=== PATIENT | female | born 1955 | race Caucasian/White ===

== ENCOUNTER → 2017-01-12 | Outpatient (CLI) | payer OTHER ==
[~2017-01-12] MED LIST: ALCO1PAD; APIX5TAB PO; ASPI81TA81 PO; ATEN100T PO; ATOR40TA16 PO; BAYEMIS; BLOOD GLUCOSE M1 KIT; BLOOD GLUCOSE T1 TES; CARD240C6 PO; CITA20TA4 PO; CLON.1 PO; FLUC150T PO; GABA400C5 PO; GLIP10TA6 PO; GLUCTES27; INSU-150; INSU-173; INSU1MIS; LANC30MI; LEVEMIR SQ; LISI-515 PO; LISI30TA4 PO; METF500T PO; NOVOLOGSS SQ; NOVORP2 SQ; OMEP20TA PO; PERI8.6T PO; PLAV75TA29 PO; SITA100T PO; SPIR25TA PO
[2017-01-12 09:29] LABS: AUTOMATED NEUTROPHIL # 2.1 TH/MM3 (1.8-7.7); BASOPHIL % 1.1 % (0.0-2.0); EOSINOPHIL # 0.1 TH/MM3 (0-0.4); EOSINOPHIL % 3.5 % (0.0-4.0); HEMATOCRIT 39.5 % (35.0-46.0); HEMO FLAGS DIFF FINAL; LYMPH % 31.9 % (9.0-44.0); LYMPHOCYTE # 1.2 TH/MM3 (1.0-4.8); MEAN CELL VOLUME 82.1 FL (80.0-100.0); MEAN CORPUSCULAR HEMOGLOBIN 28.5 PG (27.0-34.0); MEAN CORPUSCULAR HGB CONC 34.7 % (32.0-36.0); NEUT % 55.5 % (16.0-70.0); PLATELET COUNT 137 TH/MM3 (150-450); RED BLOOD COUNT 4.81 MIL/MM3 (4.00-5.30); RED CELL DISTRIBUTION WIDTH 14.1 % (11.6-17.2); WHITE BLOOD COUNT 3.8 TH/MM3 (4.0-11.0)
[2017-01-12 10:08] LABS: ALKALINE PHOSPHATASE 112 U/L (45-117); ALT (GPT) 25 U/L (10-53); ANION GAP 9 MEQ/L (5-15); AST (GOT) 19 U/L (15-37); BICARBONATE 30.1 MEQ/L (21.0-32.0); BLOOD UREA NITROGEN 9 MG/DL (7-18); CHLORIDE 98 MEQ/L (98-107); GLOMERULAR FILTRATION RATE 94 ML/MIN (>89); GLUCOSE,FASTING 313 MG/DL (74-99); HDL CHOLESTEROL 44.8 MG/DL (40.0-60.0); LDL CHOLESTEROL 139 MG/DL (0-99); POTASSIUM 3.5 MEQ/L (3.5-5.1); SODIUM (NA) 137 MEQ/L (136-145); TOTAL BILIRUBIN ADULT 0.7 MG/DL (0.2-1.0)
[2017-01-12 16:07] LABS: HEMOGLOBIN A1a 1.5 %; HEMOGLOBIN Ao 72.9 %; HEMOGLOBIN F 3.7 %; HEMOGLOBIN LA1C 3.3 %; HEMOGLOBIN P3 5.2 %
== END ==
LOC: CLAB 09:03
PROVIDERS: ATTEND Nurse Practitioner Family
DX: I10 Essential (primary) hypertension (principal); E11.9 Type 2 diabetes mellitus without complications; E78.5 Hyperlipidemia, unspecified
CPT/HCPCS: 36415; 80053; 80061; 83036; 84443; 85025

== ENCOUNTER → 2017-03-23 | Outpatient (CLI) | payer OTHER ==
[~2017-03-23] MED LIST changes: -CLON.1 PO; -FLUC150T PO; -INSU-173; -NOVORP2 SQ; -SITA100T PO
[2017-03-23 10:51] LABS: ANION GAP 8 MEQ/L (5-15); BICARBONATE 30.4 MEQ/L (21.0-32.0); BLOOD UREA NITROGEN 20 MG/DL (7-18); CHLORIDE 101 MEQ/L (98-107); GLOMERULAR FILTRATION RATE 86 ML/MIN (>89); GLUCOSE,FASTING 239 MG/DL (74-99); POTASSIUM 3.3 MEQ/L (3.5-5.1); SODIUM (NA) 139 MEQ/L (136-145)
== END ==
LOC: CLAB 09:53
PROVIDERS: ATTEND Nurse Practitioner Family
DX: R41.0 Disorientation, unspecified (principal)
CPT/HCPCS: 36415; 80069; 82607; 82746

== ENCOUNTER → 2017-03-27 | Outpatient (CLI) | payer OTHER ==
--- NOTE | 2017-03-27 09:05 | RADRPT ---
EXAM DATE/TIME: 03/27/2017 07:49 [facility] COMPARISON: No previous studies available for comparison. INDICATIONS : Transient ischemic attack. MEDICAL HISTORY : Stroke. Headaches. Dizziness. Memory loss. SURGICAL HISTORY : Tonsillectomy. Appendectomy. Cholecystectomy. Hysterectomy. ENCOUNTER: Initial ACUITY: 2 weeks PAIN SCORE: 0/10 LOCATION: Bilateral neck PEAK SYSTOLIC VELOCITIES (cm/sec): ICA/CCA RATIO: Right: 1.5 Left: 1.1 ICA: Right: 98.3 Left: 84.2 CCA: Right: 67.7 Left: 78.8 ECA: Right: 82.4 Left: 65.9 VERTEBRAL: Right: 74.9 antegrade Left: 49.6 antegrade Elevated flow velocities and ICA/CCA ratios have been found to correlate with increased degrees of vessel stenosis, calculated as percentage of diameter relative to a normal segment of distal ICA/CCA FINDINGS: RIGHT CAROTID: No significant stenosis is visualized. The waveforms are within normal limits. LEFT CAROTID: No significant stenosis is visualized. The waveforms are within normal limits. VERTEBRAL ARTERIES: Antegrade flow is seen in both vertebral arteries. MISCELLANEOUS: None. CONCLUSION: No hemodynamically significant stenosis in either carotid artery. Logan Yin MD on March 27, 2017 at 9:02 Board Certified Radiologist. This report was verified electronically.
--- NOTE | 2017-03-27 09:24 | RADRPT ---
EXAM DATE/TIME: 03/27/2017 07:48 [facility] COMPARISON: No previous studies available for comparison. INDICATIONS : TIA. MEDICAL HISTORY : Hypertension. Diabetes mellitus type 2. SURGICAL HISTORY : Cholecystectomy. Tonsillectomy. ENCOUNTER: Initial ACUITY: 4-6 days PAIN SCORE: 0/10 LOCATION: Head Please note a normal MRA of the brain does not entirely exclude the possibility of a small aneurysm, nor the possibility of distal intracranial vessel disease. TECHNIQUE: 3D time of flight MRA was performed. Source images, multiplanar STS MIP, and 3D volume MIP reconstru ctions were reviewed. FINDINGS: There is excellent visualization of the major intracranial arteries out to the second-order branch ve ssels. There are 2 focal areas of at least moderate narrowing at the proximal right posterior cerebr al artery. It appears the lumen is narrowed by at least 50% in these regions. These areas measure bet ween 3 and 4 mm in length. The more distal flow appears normal. There is a similar focal stenosis at the distal medial right A1 segment of anterior cervical artery. No other areas of stenosis are seen. There is no evidence for aneurysm, vessel truncation, and no evidence for vascular malformation. CONCLUSION: 2 adjacent focal areas of at least moderate stenosis in the proximal right posterior cerebral artery and a focal stenosis at the distal right A1 segment of the anterior cerebral artery. These areas are nonspecific and could be from atherosclerotic disease or underlying vasculitis. The more distal flow appears symmetric and normal. Allen Chung MD on March 27, 2017 at 9:01 Board Certified Radiologist. This report was verified electronically.
== END ==
LOC: HRAD 07:17
PROVIDERS: ATTEND Family Medicine
DX: R41.0 Disorientation, unspecified (principal); G45.9 Transient cerebral ischemic attack, unspecified
CPT/HCPCS: 70544; 93880

== ENCOUNTER → 2017-03-29 | Outpatient (CLI) | payer OTHER ==
--- NOTE | 2017-03-29 13:37 | RADRPT ---
EXAM DATE/TIME: 03/29/2017 13:21 [facility] COMPARISON: No previous studies available for comparison. INDICATIONS : Intermittent confusion and slurred speech. RADIATION DOSE: 48.10 CTDIvol (mGy) MEDICAL HISTORY : Hypertension. Diabetes SURGICAL HISTORY : None. ENCOUNTER: Initial ACUITY: 1 day PAIN SCALE: 0/10 LOCATION: cranial TECHNIQUE: Multiple contiguous axial images were obtained of the head. Using automated exposure control and adj ustment of the mA and/or kV according to patient size, radiation dose was kept as low as reasonably a chievable to obtain optimal diagnostic quality images. FINDINGS: CEREBRUM: The ventricles are normal for age. No evidence of midline shift, mass lesion, hemorrhage or acute in farction. No extra-axial fluid collections are seen. POSTERIOR FOSSA: The cerebellum and brainstem are intact. The 4th ventricle is midline. The cerebellopontine angle i s unremarkable. EXTRACRANIAL: The visualized portion of the orbits is intact. SKULL: The calvaria is intact. No evidence of skull fracture. CONCLUSION: 1. Negative examination. Margarito Hawk MD on March 29, 2017 at 13:33 Board Certified Radiologist. This report was verified electronically.
== END ==
LOC: HRAD 12:30
PROVIDERS: ATTEND Family Medicine
DX: R41.0 Disorientation, unspecified (principal)
CPT/HCPCS: 70450

== ENCOUNTER 2017-03-31 18:08 | Observation (INO) | payer OTHER ==
[2017-03-31] VITALS (8 sets, daily range): BP systolic 117–155; BP diastolic 72–103; PULSE 68–139; RESP 15–20; TEMP 98.2; O2SAT 98–99
[~2017-03-31] VITALS: Ht 160 cm; Wt 76.5 kg
[~2017-03-31 18:08] MED LIST changes: -ALCO1PAD; -APIX5TAB PO; -BLOOD GLUCOSE M1 KIT; -BLOOD GLUCOSE T1 TES; -CARD240C6 PO; -INSU1MIS; -LANC30MI; -LISI-515 PO; -NOVOLOGSS SQ
--- NOTE | 2017-03-31 18:42 | PD ---
HPI . headache for 2 weeks, felt lightheaded Chief Complaint: Syncope/Near-Syncope Time Seen by Provider: 18:42 Travel History International Travel<30 days: No Contact w/Intl Traveler<30days: No Traveled to known affect area: No History of Present Illness HPI 61-year-old female with history of hypertension, diabetes, hyperlipidemia and osteoarthritis here with complaints of headache for 2 weeks and almost passing out. Patient was seen in the community clinic on March 22, 2017 for an episode of "being out of sorts." I have reviewed those records and apparently patient went in and it was believed that she may have had a TIA or possible stroke. Patient had a full workup including a head CT, had MRA, carotid ultrasound and head CT. Head CT was normal. Head MRA demonstrates a moderate stenosis and focal stenosis and had some findings that were possibly representing atherosclerotic disease versus vasculitis. She also had a carotid ultrasound that demonstrated no significant stenosis. When asked about the type of headache she tells me "It's all over." She has a very hard time describing the type of pain. She has settled on calling it "dull." She has not ever passed out or had any LOC. Patient is a poor historian and has some level of difficulty relaying her symptoms. PFSH Past Medical History Cardiovascular Problems: Yes (HTN) High Cholesterol: Yes Diabetes: Yes Patient Takes Glucophage: Yes (03/31 0800 - 1000 mg) Hypertension: Yes Past Surgical History Hysterectomy: Yes Social History Alcohol Use: No Tobacco Use: No Substance Use: No Allergies-Medications (Allergen,Severity, Reaction): Coded Allergies: Codeine (Verified Allergy, Severe, Nausea/Vomiting, 03/31/17) Reported Meds & Prescriptions Reported Meds & Active Scripts Active Lisinopril 30 Mg Tab 30 Mg PO DAILY Plavix (Clopidogrel Bisulfate) 75 Mg Tab 75 Mg PO DAILY Metformin (Metformin HCl) 500 Mg Tab 1,000 Mg PO BIDPC With meals Glipizide 10 Mg Tab 10 Mg PO BIDAC Take 30 minutes before a meal Omeprazole 20 Mg Tab 40 Mg PO BID Citalopram (Citalopram Hydrobromide) 20 Mg Tab 20 Mg PO DAILY Atenolol 100 Mg Tab 100 Mg PO DAILY Atorvastatin (Atorvastatin Calcium) 40 Mg Tab 40 Mg PO DAILY Spironolactone 25 Mg Tab 25 Mg PO DAILY Reported Levemir Inj (Insulin Detemir) 1,000 unit/ 10 ML Vial 50 Units SQ BID Do not mix with any other Insulin. Gabapentin 400 Mg Cap 400 Cap PO BID Aspir-81 (Aspirin) 81 Mg Tabdr 81 Mg PO DAILY Ginny-Colace (Sennosides-Docusate Sodium) 8.6-50 Mg Tab 1 Tab PO DAILY Review of Systems General / Constitutional: No: Fever Eyes: No: Visual changes HENT: No: Headaches Cardiovascular: No: Chest Pain or Discomfort Respiratory: No: Shortness of Breath Gastrointestinal: No: Abdominal Pain Genitourinary: No: Dysuria Musculoskeletal: No: Pain Skin: No Rash Neurologic: Positive: Weakness, Headache Psychiatric: No: Depression Endocrine: No: Polydipsia Hematologic/Lymphatic: No: Easy Bruising Physical Exam Narrative GENERAL: AAO x 3, no acute distress, Well-nourished, well-developed patient. SKIN: Warm and dry. No visible rashes or bruising. HEAD: Normocephalic and atraumatic. EYES: No scleral icterus. No injection or drainage. EOM intact, PERRLA ENT: No nasal drainage noted. Mucous membranes pink. Airway patent. NECK: Supple, trachea midline. No JVD. CARDIOVASCULAR: Irregularly irregular heartbeat RESPIRATORY: Breath sounds equal bilaterally. No accessory muscle use. No rhonchi or rales. GASTROINTESTINAL: Abdomen soft, non-tender, nondistended. EXTREMITIES: No cyanosis or edema. BACK: Nontender without obvious deformity. No CVA tenderness. 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 Data Data Last Documented VS Vital Signs Date Time Temp Pulse Resp B/P Pulse Ox O2 Delivery O2 Flow Rate FiO2 03/31/17 20:58 117 16 141/87 99 Nasal Cannula 2 03/31/17 18:11 98.2 Orders Electrocardiogram (03/31/17 ) Complete Blood Count With Diff (03/31/17 19:24) Comprehensive Metabolic Panel (03/31/17 19:24) Westergren Sedimentation Rate (03/31/17 19:24) Cta Brain W Iv Contrast W 3d (03/31/17 ) Cta Neck W Iv Contrast W 3d (03/31/17 ) Diltiazem Inj (Cardizem Inj) (03/31/17 19:30) Chest, Single Ap (03/31/17 ) Diltiazem Inj (Cardizem Inj) (03/31/17 20:00) Sodium Chloride 0.9% Flush (Ns Flush) (03/31/17 20:00) Diltiazem Inj (Cardizem Inj) (03/31/17 20:00) Sodium Chlorid 0.9% 500 Ml Inj (Ns 500 M (03/31/17 20:00) Sodium Chlor 0.9% 1000 Ml Inj (Ns 1000 M (03/31/17 20:45) Insulin Human Nph Inj (Novolin N Inj) (03/31/17 20:45) C-Reactive Protein (Crp) (03/31/17 19:33) Iohexol 350 Inj (Omnipaque 350 Inj) (03/31/17 21:49) Labs Laboratory Tests Test 03/31/17 03/31/17 19:24 19:33 Erythrocyte Sedimentation Rate 17 mm/hr White Blood Count 6.9 TH/MM3 Red Blood Count 4.86 MIL/MM3 Hemoglobin 13.8 GM/DL Hematocrit 40.2 % Mean Corpuscular Volume 82.7 FL Mean Corpuscular Hemoglobin 28.3 PG Mean Corpuscular Hemoglobin 34.2 % Concent Red Cell Distribution Width 13.3 % Platelet Count 159 TH/MM3 Mean Platelet Volume 9.7 FL Neutrophils (%) (Auto) 76.4 % Lymphocytes (%) (Auto) 15.5 % Monocytes (%) (Auto) 5.9 % Eosinophils (%) (Auto) 1.6 % Basophils (%) (Auto) 0.6 % Neutrophils # (Auto) 5.3 TH/MM3 Lymphocytes # (Auto) 1.1 TH/MM3 Monocytes # (Auto) 0.4 TH/MM3 Eosinophils # (Auto) 0.1 TH/MM3 Basophils # (Auto) 0.0 TH/MM3 CBC Comment DIFF FINAL Differential Comment Sodium Level 137 MEQ/L Potassium Level 3.3 MEQ/L Chloride Level 100 MEQ/L Carbon Dioxide Level 27.4 MEQ/L Anion Gap 10 MEQ/L Blood Urea Nitrogen 11 MG/DL Creatinine 0.76 MG/DL Estimat Glomerular Filtration 77 ML/MIN Rate Random Glucose 468 MG/DL Calcium Level 8.9 MG/DL Total Bilirubin 0.4 MG/DL Aspartate Amino Transf 17 U/L (AST/SGOT) Alanine Aminotransferase 25 U/L (ALT/SGPT) Alkaline Phosphatase 126 U/L C-Reactive Protein 0.53 MG/DL Total Protein 6.9 GM/DL Albumin 3.4 GM/DL MDM Medical Decision Making Medical Screen Exam Complete: Yes Emergency Medical Condition: Yes Medical Record Reviewed: Yes Differential Diagnosis Migraine, A fib, Vasculitis, Temporal arteritis, TIA, less likely CVA Narrative Course 61-year-old female here with complaints of headache for the past 2 weeks and feeling a sensation as if she is going to pass out. Examination was done and I auscultated A. fib with a heart rate of approximately 116. I discussed with the patient and reviewed her outpatient notes. This is new and she is not aware of any type of irregular heart beat. 0: I discussed with Dr. Clark; who recommends CTA of the brain and carotids , ESR CRP. Continue asa and plavix on outpatient basis. Neuro on outpatient basis. EKG was done and demonstrates A. fib with RVR. THIS IS NEW. This was reviewed by Dr. Stearns. Cardizem given. Chest x-ray unremarkable. Blood sugar was reported 468. Patient given IV bolus and 10 units of subcutaneous insulin. CRP mildly elevated, but fairly unremarkable. I have discussed with Dr. Stearns. He is also in agreement. 2220: CTAs are still pending: regardless patient will be admitted for new onset A.fib. Last Impressions Neck CTA 03/31/17 0000 Signed Impressions: Service Date/Time: Friday, March 31, 2017 21:42 - CONCLUSION: No acute disease. Danis Messer MD Chest X-Ray 03/31/17 0000 Signed Impressions: Service Date/Time: Friday, March 31, 2017 20:15 - CONCLUSION: No acute disease. Danis Messer MD Laboratory Tests Test 03/31/17 03/31/17 19:24 19:33 Erythrocyte Sedimentation Rate 17 mm/hr White Blood Count 6.9 TH/MM3 Red Blood Count 4.86 MIL/MM3 Hemoglobin 13.8 GM/DL Hematocrit 40.2 % Mean Corpuscular Volume 82.7 FL Mean Corpuscular Hemoglobin 28.3 PG Mean Corpuscular Hemoglobin 34.2 % Concent Red Cell Distribution Width 13.3 % Platelet Count 159 TH/MM3 Mean Platelet Volume 9.7 FL Neutrophils (%) (Auto) 76.4 % Lymphocytes (%) (Auto) 15.5 % Monocytes (%) (Auto) 5.9 % Eosinophils (%) (Auto) 1.6 % Basophils (%) (Auto) 0.6 % Neutrophils # (Auto) 5.3 TH/MM3 Lymphocytes # (Auto) 1.1 TH/MM3 Monocytes # (Auto) 0.4 TH/MM3 Eosinophils # (Auto) 0.1 TH/MM3 Basophils # (Auto) 0.0 TH/MM3 CBC Comment DIFF FINAL Differential Comment Sodium Level 137 MEQ/L Potassium Level 3.3 MEQ/L Chloride Level 100 MEQ/L Carbon Dioxide Level 27.4 MEQ/L Anion Gap 10 MEQ/L Blood Urea Nitrogen 11 MG/DL Creatinine 0.76 MG/DL Estimat Glomerular Filtration 77 ML/MIN Rate Random Glucose 468 MG/DL Calcium Level 8.9 MG/DL Total Bilirubin 0.4 MG/DL Aspartate Amino Transf 17 U/L (AST/SGOT) Alanine Aminotransferase 25 U/L (ALT/SGPT) Alkaline Phosphatase 126 U/L C-Reactive Protein 0.53 MG/DL Total Protein 6.9 GM/DL Albumin 3.4 GM/DL CTA brain: appreciated. She will need outpatient neuro f/u. Discussed with Dr. Ness from [facility]. Recommends [facility] for observation. Discussed with patient and she is in agreement with recommendations. Diagnosis Primary Impression: New onset a-fib Admitting Information Admitting Physician Requests: Admit Condition: Stable Namita Nye Mar 31, 2017 18:42
[2017-03-31] MEDS ORDERED: DILTIAZEM HCL 25 MG/5 ML VIAL IV ONE ×2 (19:30→20:00)
[2017-03-31] MEDS ORDERED: SODIUM CHLORIDE 0.9% FLUSH 10 ML FLUSH IVF PRN (20:00)
[2017-03-31] MEDS ORDERED: SODIUM CHLORID 0.9% 500 ML INJ 500 ML IV ONE (20:00)
[2017-03-31] MEDS ORDERED: DILTIAZEM INJ 125 MG in SODIUM CHLORIDE 0.9% INJ 100 ML IV SCH (20:00)
[2017-03-31 20:13] LABS: AUTOMATED NEUTROPHIL # 5.3 TH/MM3 (1.8-7.7); BASOPHIL % 0.6 % (0.0-2.0); EOSINOPHIL # 0.1 TH/MM3 (0-0.4); EOSINOPHIL % 1.6 % (0.0-4.0); HEMATOCRIT 40.2 % (35.0-46.0); HEMO FLAGS DIFF FINAL; LYMPH % 15.5 % (9.0-44.0); LYMPHOCYTE # 1.1 TH/MM3 (1.0-4.8); MEAN CELL VOLUME 82.7 FL (80.0-100.0); MEAN CORPUSCULAR HEMOGLOBIN 28.3 PG (27.0-34.0); MEAN CORPUSCULAR HGB CONC 34.2 % (32.0-36.0); MONO % 5.9 % (0.0-8.0); NEUT % 76.4 % (16.0-70.0); PLATELET COUNT 159 TH/MM3 (150-450); RED BLOOD COUNT 4.86 MIL/MM3 (4.00-5.30); RED CELL DISTRIBUTION WIDTH 13.3 % (11.6-17.2); WHITE BLOOD COUNT 6.9 TH/MM3 (4.0-11.0)
--- NOTE | 2017-03-31 20:22 | RADRPT ---
EXAM DATE/TIME: 03/31/2017 20:15 [facility] COMPARISON: No previous studies available for comparison. INDICATIONS : Shortness of breath and cough. MEDICAL HISTORY : Diabetes mellitus type II. Stroke. Headaches. Dizziness. Memory loss. A-fib. SURGICAL HISTORY : Tonsillectomy. Appendectomy. Cholecystectomy. Hysterectomy. ENCOUNTER: Initial ACUITY: 2 days PAIN SCORE: 5/10 LOCATION: Bilateral chest FINDINGS: A single view of the chest demonstrates the lungs to be symmetrically aerated without evidence of mas s, infiltrate or effusion. The cardiomediastinal contours are unremarkable. Osseous structures are intact. CONCLUSION: No acute disease. Danis Messer MD on March 31, 2017 at 20:19 Board Certified Radiologist. This report was verified electronically.
[2017-03-31 20:29] LABS: ALKALINE PHOSPHATASE 126 U/L (45-117); ALT (GPT) 25 U/L (10-53); ANION GAP 10 MEQ/L (5-15); AST (GOT) 17 U/L (15-37); BICARBONATE 27.4 MEQ/L (21.0-32.0); BLOOD UREA NITROGEN 11 MG/DL (7-18); CHLORIDE 100 MEQ/L (98-107); GLOMERULAR FILTRATION RATE 77 ML/MIN (>89); POTASSIUM 3.3 MEQ/L (3.5-5.1); SODIUM (NA) 137 MEQ/L (136-145); TOTAL BILIRUBIN ADULT 0.4 MG/DL (0.2-1.0)
[2017-03-31] MEDS ORDERED: SODIUM CHLOR 0.9% 1000 ML INJ 1,000 ML IV ONE (20:45)
[2017-03-31] MEDS ORDERED: INSULIN HUMAN NPH 1,000 UNITS/10 ML VIAL SQ ONE (20:45)
[2017-03-31] MEDS ORDERED: IOHEXOL 350 MG/ML 10 ML VIAL (for RAD DIAG) IV ONE (21:49)
--- NOTE | 2017-03-31 22:10 | RADRPT ---
EXAM DATE/TIME: 03/31/2017 21:42 [facility] COMPARISON: No previous studies available for comparison. INDICATIONS : Near syncopal episode and headache. IV CONTRAST: 78 cc Omnipaque 350 (iohexol) IV ; Cumulative dose for multiple exams. RADIATION DOSE: 22.92 CTDIvol (mGy) ; Combined studies MEDICAL HISTORY : Cardiovascular disease. Hypertension. Diabetes mellitus type 2. SURGICAL HISTORY : Hysterectomy. ENCOUNTER: Initial ACUITY: 2 weeks PAIN SCALE: 4/10 LOCATION: Cranial TECHNIQUE: Volumetric scanning was performed using a multi-row detector CT scanner. The data was post processed with a variety of visualization algorithms including full volume maximum intensity projection, multi -planar sliding thin slab reformation, curved planar reformation, and surface rendering techniques. Using automated exposure control and adjustment of the mA and/or kV according to patient size, radiat ion dose was kept as low as reasonably achievable to obtain optimal diagnostic quality images. DICO M format image data is available electronically for review and comparison. FINDINGS: The upper cervical, petrous, cavernous and supraclinoid internal carotid arteries are patent without significant stenosis or occlusion. The A1 and M1 segments are also patent without significant stenos is or occlusion. The anterior and middle cerebral arteries are patent without significant stenosis o r occlusion. There is moderate stenosis involving the proximal portion of the right posterior cerebr al artery. Mild focal stenosis is noted involving the proximal portion of the left posterior cerebra l artery. The basilar artery is patent without significant stenosis or occlusion. The uppermost por tions of the vertebral arteries are patent without significant stenosis or occlusion. No aneurysm fo rmation is noted. CONCLUSION: 1. Moderate focal stenosis involving the right proximal posterior cerebral artery and mild focal mikaela nosis involving the left proximal posterior cerebral artery. 2. No significant stenosis or occlusion of the anterior or middle cerebral arteries. Danis Messer MD on March 31, 2017 at 22:02 Board Certified Radiologist. This report was verified electronically.
--- NOTE | 2017-03-31 22:24 | RADRPT ---
EXAM DATE/TIME: 03/31/2017 21:42 [facility] COMPARISON: No previous studies available for comparison. INDICATIONS : Near syncopal episode and headache. IV CONTRAST: 78 cc Omnipaque 350 (iohexol) IV ; Cumulative dose for multiple exams. RADIATION DOSE: 22.92 CTDIvol (mGy) ; Combined studies MEDICAL HISTORY : Cardiovascular disease. Hypertension. Diabetes mellitus type 2. SURGICAL HISTORY : Hysterectomy. ENCOUNTER: Initial ACUITY: 2 weeks PAIN SCALE: 0/10 LOCATION: neck Elevated flow velocities and ICA/CCA ratios have been found to correlate with increased degrees of vessel stenosis, calculated as percentage of diameter relative to a normal segment of distal ICA/CCA. TECHNIQUE: Volumetric scanning was performed using a multirow detector CT scanner. The data was post processed with a variety of visualization algorithms including full-volume maximum intensity projection, multip lanar sliding thin-slab reformation, curved-planar reformation, and surface-rendering techniques. Us ing automated exposure control and adjustment of the mA and/or kV according to patient size, radiatio n dose was kept as low as reasonably achievable to obtain optimal diagnostic quality images. DICOM f ormat image data is available electronically for review and comparison. FINDINGS: AORTIC ARCH: There is a three-vessel origin of the great vessels from the aorta. No evidence of ostial narrowing. RIGHT CAROTID: The common carotid artery is intact. The carotid bulb has a normal configuration without ulceration o r narrowing. The internal carotid artery lumen is smooth without stenosis. The external carotid mel ry is intact. LEFT CAROTID: The common carotid artery is intact. The carotid bulb has a normal configuration without ulceration or narrowing. The internal carotid artery lumen is smooth without stenosis. The external carotid ar mimi is intact. VERTEBRALS: The vertebral arteries have a symmetric diameter. No stenotic lesions are seen. CONCLUSION: No acute disease. Danis Messer MD on March 31, 2017 at 22:20 Board Certified Radiologist. This report was verified electronically.
[2017-03-31] MEDS: METOPROLOL TARTRATE 25 MG TAB PO ONE ×2 (22:45→23:39)
--- NOTE | 2017-03-31 22:55 | HHI.HP ---
[facility] Bol[facility] MD Admission Diagnosis new onset afib Diagnoses: (1) New onset a-fib Diagnosis: Principal (2) Headache Diagnosis: Principal (3) Hypokalemia Diagnosis: Principal (4) HTN (hypertension) Diagnosis: Principal (5) DM (diabetes mellitus) Diagnosis: Principal Travel History International Travel<30 Days: No Contact w/Intl Traveler <30 Da: No Traveled to Known Affected Are: No History of Present Illness This is a 61-year-old female with a PMH of HTN, Hyperlipidemia and DM who presented to the ER with complaints of headache x2 wks. States she's been "feeling sick" for 2wks, reports intermittent episodes of dizziness, gait instability and speech disturbance. Was seen by PCP, Dr. Bolanos on 03/15/17 for elevated BS, Levemir increased to 40u bid, later seen on 03/22/17 for being "out of it" and noted to have elevated BS and BP 198/100, s/p Clonidine in office and Levemir increased to 50u bid. Reports compliance with medications. Today, pt noted significant headache. On arrival, BP 155/81, HR 68, O2 sat 98% on RA, Afebrile. CBC unremarkable. K+ 3.3. BS 468. Troponin 0.04. CXR with no acute findings. CT Head negative. Dr. Clark consulted by ER physician secondary to headache, recommended CTA Head/Neck. CTA Head w/ moderate focal stenosis Right DRIVE IN WAITER/WAITRESS and mild stenosis Left DRIVE IN WAITER/WAITRESS. While in ER, pt noted to have episode of A-fib w/ HR 130's, s/p Cardizem IV x2 doses w/ HR now 90-110's. No complaints at this time. Review of Systems Except as stated in HPI: all other systems reviewed are Neg ROS: 14 point review of systems otherwise negative. Past Family Social History Past Medical History PMH: HTN, Hyperlipidemia and DM Past Surgical History PAST SURGICAL HISTORY: Hysterectomy Allergies: Coded Allergies: Codeine (Verified Allergy, Severe, Nausea/Vomiting, 03/31/17) Family History PAST FAMILY HISTORY: Reviewed. No h/o DM or CAD Social History PAST SOCIAL HISTORY: Negative for alcohol, tobacco or drugs. Physical Exam Vital Signs Vital Signs Date Time Temp Pulse Resp B/P Pulse Ox O2 Delivery O2 Flow Rate FiO2 03/31/17 20:58 117 16 141/87 99 Nasal Cannula 2 03/31/17 20:34 126 16 150/97 99 Nasal Cannula 2 03/31/17 20:07 98 Nasal Cannula 2 03/31/17 20:07 106 16 128/86 99 Nasal Cannula 2 03/31/17 19:42 116 20 117/85 98 Room Air 03/31/17 19:37 139 20 142/103 98 Room Air 03/31/17 18:11 98.2 68 15 155/81 98 Physical Exam PE: GENERAL: Middle-aged white female in no acute distress. HEENT: PERRLA, EOMI. No scleral icterus or conjunctival pallor. No lid lag or facial droop. CARDIOVASCULAR: Irregularly irregular, in A. fib. No obvious murmurs to auscultation. No chest tenderness to palpation. RESPIRATORY: No obvious rhonchi or wheezing. Clear to auscultation. Breath sounds equal bilaterally. GASTROINTESTINAL: Abdomen soft, non-tender, nondistended. BS normal. MUSCULOSKELETAL: Extremities without clubbing, cyanosis, or edema. No obvious deformities. NEUROLOGICAL: Awake, alert and oriented x4. No focal neurologic deficits. Moving both upper and lower extremities spontaneously. Laboratory Laboratory Tests Test 03/31/17 03/31/17 19:24 19:33 Erythrocyte Sedimentation Rate 17 White Blood Count 6.9 Red Blood Count 4.86 Hemoglobin 13.8 Hematocrit 40.2 Mean Corpuscular Volume 82.7 Mean Corpuscular Hemoglobin 28.3 Mean Corpuscular Hemoglobin 34.2 Concent Red Cell Distribution Width 13.3 Platelet Count 159 Mean Platelet Volume 9.7 Neutrophils (%) (Auto) 76.4 Lymphocytes (%) (Auto) 15.5 Monocytes (%) (Auto) 5.9 Eosinophils (%) (Auto) 1.6 Basophils (%) (Auto) 0.6 Neutrophils # (Auto) 5.3 Lymphocytes # (Auto) 1.1 Monocytes # (Auto) 0.4 Eosinophils # (Auto) 0.1 Basophils # (Auto) 0.0 CBC Comment DIFF FINAL Differential Comment Sodium Level 137 Potassium Level 3.3 Chloride Level 100 Carbon Dioxide Level 27.4 Anion Gap 10 Blood Urea Nitrogen 11 Creatinine 0.76 Estimat Glomerular Filtration 77 Rate Random Glucose 468 Calcium Level 8.9 Total Bilirubin 0.4 Aspartate Amino Transf 17 (AST/SGOT) Alanine Aminotransferase 25 (ALT/SGPT) Alkaline Phosphatase 126 C-Reactive Protein 0.53 Total Protein 6.9 Albumin 3.4 Result Diagram: 03/31/17193203/31/171932 Assessment and Plan Problem List: (1) New onset a-fib ICD Code: I48.91 Status: Acute (2) Headache ICD Code: R51 Status: Acute (3) Hypokalemia ICD Code: E87.6 Status: Acute (4) HTN (hypertension) ICD Code: I10 Status: Acute (5) DM (diabetes mellitus) ICD Code: E11.9 Status: Acute Assessment and Plan A/P: 1. New Onset A-fib: A-fib w/ HR 120-130's while in ER, s/p Cardizem IV x2, HR now 90-110's. Telemetry. Start Metoprolol. Check Echo, Consult Cardiology for further recommendations. Will start anticoagulation in light of multiple comorbidities. Check serial cardiac enzymes to eval for underlying ischemia. 2. Headache: Likely secondary to uncontrolled HTN. CT Head w/ no acute findings. Dr. Clark consulted by ER physician, recommended additional imaging , CTA Head/Neck. CTA Head with artery stenosis Right DRIVE IN WAITER/WAITRESS and mild stenosis Left DRIVE IN WAITER/WAITRESS. CTA With no acute findings. Analgesics as needed. 3. Hypokalemia: K+ 3.3, will replace and recheck 4. HTN: BP 140-150's, resume home medications, monitor BP. 5. DM: Sliding scale w/ Accu-Cheks. Hold Metformin. Check Hgb A1c. 6. DVT Prophylaxis: Lovenox 7. Social work for d/c planning as needed. 8. Case discussed w/ ER physician at length Lucia Ness MD Mar 31, 2017 22:55
[2017-03-31] MEDS ORDERED: POTASSIUM CHLORIDE 20 MEQ CONTROLLED RELEASE TAB PO ONE (23:00)
[2017-03-31] MEDS ORDERED: GLUCAGON 1 MG/ML VIAL OTHER PRN (23:00)
[2017-03-31] MEDS ORDERED: MELATONIN 5 MG TAB PO PRN (23:00)
[2017-03-31] MEDS ORDERED: DEXTROSE 50% IN WATER 50 ML VIAL(D50) IV PRN (23:00)
[2017-03-31] MEDS: SODIUM CHLOR 0.9% 1000 ML INJ 1,000 ML IV SCH (23:14)
[2017-03-31] MEDS ORDERED: MAGNESIUM HYDROXIDE SUSP 30 ML CUP PO PRN (23:15)
[2017-03-31] MEDS ORDERED: LACTULOSE SYRUP 20 GM/30 ML CUP PO PRN (23:15)
[2017-03-31] MEDS ORDERED: ACETAMINOPHEN 325 MG TAB PO PRN (23:15)
[2017-03-31] MEDS ORDERED: ONDANSETRON HCL 4 MG/2 ML VIAL IVP PRN (23:15)
[2017-03-31] MEDS ORDERED: BISACODYL 10 MG SUPP RECTAL PRN (23:15)
[2017-03-31] MEDS ORDERED: MORPHINE SULFATE 4 MG/ML INJ IV PRN (23:15)
[2017-03-31] MEDS ORDERED: SODIUM CHLORIDE 0.9% FLUSH 10 ML FLUSH IV FLUSH PRN (23:15)
[2017-03-31] MEDS ORDERED: SENNOSIDES 8.6 MG TAB PO PRN (23:15)
[2017-04-01] VITALS (24 sets, daily range): BP systolic 102–140; BP diastolic 64–86; PULSE 57–104; RESP 18–22; TEMP 97.9–98.4; O2SAT 96–99
[2017-04-01] MEDS: glipiZIDE 10 MG TAB PO SCH ×2 (06:16→16:22)
[2017-04-01] MEDS: INSULIN ASPART SUPPLEMENTAL SCALE SQ SCH ×4 (06:20→20:58)
[2017-04-01 08:56] LABS: AUTOMATED NEUTROPHIL # 4.6 TH/MM3 (1.8-7.7); BASOPHIL % 0.6 % (0.0-2.0); EOSINOPHIL # 0.1 TH/MM3 (0-0.4); EOSINOPHIL % 1.2 % (0.0-4.0); HEMATOCRIT 40.7 % (35.0-46.0); HEMO FLAGS DIFF FINAL; LYMPH % 26.5 % (9.0-44.0); LYMPHOCYTE # 1.8 TH/MM3 (1.0-4.8); MEAN CELL VOLUME 82.6 FL (80.0-100.0); MEAN CORPUSCULAR HEMOGLOBIN 28.7 PG (27.0-34.0); MEAN CORPUSCULAR HGB CONC 34.8 % (32.0-36.0); MONO % 4.8 % (0.0-8.0); NEUT % 66.9 % (16.0-70.0); PLATELET COUNT 175 TH/MM3 (150-450); RED BLOOD COUNT 4.92 MIL/MM3 (4.00-5.30); RED CELL DISTRIBUTION WIDTH 13.2 % (11.6-17.2); WHITE BLOOD COUNT 6.9 TH/MM3 (4.0-11.0)
[2017-04-01] MEDS: SODIUM CHLORIDE 0.9% FLUSH 10 ML FLUSH IV FLUSH SCH ×2 (09:00→20:49)
[2017-04-01] MEDS ORDERED: ENOXAPARIN SODIUM 80 MG/0.8 ML SYRINGE SQ SCH (09:00)
[2017-04-01] MEDS ORDERED: CLOPIDOGREL 75 MG TAB PO SCH (09:00)
[2017-04-01] MEDS: DOCUSATE SODIUM 50 MG/SENNA 8.6 MG TAB PO SCH ×2 (09:12→20:48)
[2017-04-01] MEDS: GABAPENTIN 400 MG CAP PO SCH ×2 (09:12→20:48)
[2017-04-01] MEDS: ASPIRIN EC 81 MG TABEC PO SCH (09:12)
[2017-04-01] MEDS: LISINOPRIL 10 MG TAB PO SCH (09:12)
[2017-04-01] MEDS: ATORVASTATIN 40 MG TAB PO SCH (09:12)
[2017-04-01] MEDS: PANTOPRAZOLE SOD 40 MG DELAYED RELEASE TAB PO SCH ×2 (09:13→20:48)
[2017-04-01] MEDS: CITALOPRAM HYDROBROMIDE 20 MG TAB PO SCH (09:13)
[2017-04-01] MEDS: SODIUM CHLOR 0.9% 1000 ML INJ 1,000 ML IV SCH ×2 (09:14→20:50)
[2017-04-01 09:19] LABS: ALKALINE PHOSPHATASE 109 U/L (45-117); ALT (GPT) 24 U/L (10-53); ANION GAP 10 MEQ/L (5-15); AST (GOT) 23 U/L (15-37); BICARBONATE 26.3 MEQ/L (21.0-32.0); BLOOD UREA NITROGEN 12 MG/DL (7-18); CHLORIDE 104 MEQ/L (98-107); GLOMERULAR FILTRATION RATE 98 ML/MIN (>89); HDL CHOLESTEROL 42.6 MG/DL (40.0-60.0); LDL CHOLESTEROL 115 MG/DL (0-99); POTASSIUM 3.6 MEQ/L (3.5-5.1); SODIUM (NA) 140 MEQ/L (136-145); TOTAL BILIRUBIN ADULT 0.4 MG/DL (0.2-1.0)
[2017-04-01] MEDS: APIXABAN 5 MG TABLET PO SCH ×2 (10:22→20:48)
--- NOTE | 2017-04-01 10:22 | PD.CONS ---
History of Present Illness Service Neurology Consult Requested By er Reason for Consult [facility] Primary Care Physician Gloria Bolanos MD History of Present Illness 61-year-old female with a PMH of HTN, Hyperlipidemia and DM who presented to the ER with complaints of headache x2 wks. States she's been "feeling sick" for 2wks, reports intermittent episodes of dizziness, gait instability. headache in is in the rt frontal region, can be throbbing and lasts for minutes , comes and goes, can be associated with heart palpitations, dizziness. no photophonophobia, no n/v. can be throbbing. On arrival, BP 155/81, HR 68. has had outpatient eval with her pcp. denies any fever, night sweats, chills. no focal weakness, no vision loss, no sensory changes. 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 While in ER, pt noted to have episode of A-fib w/ HR 130's, s/p Cardizem IV x2 doses w/ HR now 90-110's. No complaints at this time. Review of Systems Except as stated in HPI: all other systems reviewed are Neg ROS: 14 point review of systems otherwise negative. Past Family Social History Past Medical History htn, HLD, DM Past Surgical History PAST SURGICAL HISTORY: Hysterectomy Allergies: Coded Allergies: Codeine (Verified Allergy, Severe, Nausea/Vomiting, 03/31/17) Family History PAST FAMILY HISTORY: Reviewed. No h/o DM or CAD Social History PAST SOCIAL HISTORY: Negative for alcohol, tobacco or drugs. Review of Systems All other ROS: ROS reviewed as documented in chart Past Family Social History Allergies: Coded Allergies: Codeine (Verified Allergy, Severe, Nausea/Vomiting, 03/31/17) Active Ordered Medications Current Medications Medications (Trade) Dose Ordered Sig/Be Route Start Time Stop Time Status Last Admin (Cardizem Inj/NS Inj) 125 ml @ 0 mls/hr TITRATE IV 03/31/17 20:00 03/31/17 20:35 (D50w (Vial) Inj) 50 ml UNSCH PRN IV 03/31/17 23:00 (Glucagon Inj) 1 mg UNSCH PRN OTHER 03/31/17 23:00 (Ecotrin Ec) 81 mg DAILY PO 04/01/17 09:00 04/01/17 09:12 (Lipitor) 40 mg DAILY PO 04/01/17 09:00 04/01/17 09:12 (CeleXA) 20 mg DAILY PO 04/01/17 09:00 04/01/17 09:13 (Neurontin) 400 mg BID PO 04/01/17 09:00 04/01/17 09:12 (Glucotrol) 10 mg BIDAC PO 04/01/17 07:00 04/01/17 06:16 (Prinivil) 30 mg DAILY PO 04/01/17 09:00 04/01/17 09:12 (Protonix) 40 mg BID PO 04/01/17 09:00 04/01/17 09:13 Melatonin 5 mg 5 mg HS PRN PO 03/31/17 23:00 04/01/17 02:41 (NS 1000 ml Inj) 1,000 ml @ 100 mls/hr Q10H IV 03/31/17 23:14 04/01/17 09:14 (NS Flush) 2 ml UNSCH PRN IV FLUSH 03/31/17 23:15 (NS Flush) 2 ml BID IV FLUSH 04/01/17 09:00 (Zofran Inj) 4 mg Q6H PRN IVP 03/31/17 23:15 (Tylenol) 650 mg Q6H PRN PO 03/31/17 23:15 (Morphine Inj) 2 mg Q3H PRN IV 03/31/17 23:15 03/31/17 23:38 (Ginny-Colace) 1 tab BID PO 04/01/17 09:00 04/01/17 09:12 (Milk Of Magnesia Liq) 30 ml Q12H PRN PO 03/31/17 23:15 (Senokot) 17.2 mg Q12H PRN PO 03/31/17 23:15 (Dulcolax Supp) 10 mg DAILY PRN RECTAL 03/31/17 23:15 (Lactulose Liq) 30 ml DAILY PRN PO 03/31/17 23:15 (Eliquis) 5 mg BID PO 04/01/17 10:15 (Cardizem) 60 mg Q6HR PO 04/01/17 12:00 Exam I&O / VS 03/31/17 03/31/17 04/01/17 15:00 23:00 07:00 Intake Total 480 ml Output Total 300 ml Balance 180 ml Intake Oral 480 ml Output Urine Total 300 ml Vital Signs Date Time Temp Pulse Resp B/P Pulse Ox O2 Delivery O2 Flow Rate FiO2 04/01/17 09:00 104 04/01/17 08:00 99 04/01/17 07:15 98.3 86 19 122/74 98 04/01/17 07:00 70 04/01/17 06:05 88 04/01/17 05:08 79 04/01/17 04:39 76 04/01/17 03:36 82 04/01/17 03:20 98.0 70 102/64 97 04/01/17 01:45 93 04/01/17 01:32 98.1 102 136/86 99 03/31/17 23:41 91 16 146/81 99 Room Air 03/31/17 23:12 80 16 125/72 99 Nasal Cannula 2 03/31/17 20:58 117 16 141/87 99 Nasal Cannula 2 03/31/17 20:34 126 16 150/97 99 Nasal Cannula 2 03/31/17 20:07 98 Nasal Cannula 2 03/31/17 20:07 106 16 128/86 99 Nasal Cannula 2 03/31/17 19:42 116 20 117/85 98 Room Air 03/31/17 19:37 139 20 142/103 98 Room Air 03/31/17 18:11 98.2 68 15 155/81 98 General: Alert and Oriented, No acute distress Eye: Normal conjuctiva Respiratory: Non-labored respirations Musculoskeletal: ROM Neurologic: Alert, Oriented, Normal motor, No focal defects, CN II-XII intact, Normal DTR's Psychiatric: Cooperative, Appropriate mood & affect, Normal judgement, Non- suicidal Exam Comments ox 3, no aphasia, follows, eomi, vff, no tenriism tenderness, no focal weakness, Review/Management Diagnosis/Plan: (1) Headache Plan: suspect 2/2 uncontrolled DM, afib intracranial vasostenotic dz could be playing a role doubt vasculitis. esr nml, no fever, cbc nml. recs OAC per cardioloy tighter control of DM/HTN/lipids wt loss/exercise can f/u with pcp can f/u with us if needed sign off, call if ? (2) New onset a-fib Plan: seen by cardiology (3) Essential hypertension Plan: per medical Problem Qualifiers (1) Headache: Chaparro Clark MD Apr 01, 2017 10:22
--- NOTE | 2017-04-01 10:33 | MB ---
cc: PETERSON CARDOSO MD DATE OF CONSULTATION: 04/01/2017 REASON FOR CONSULTATION: New onset atrial fibrillation. HISTORY OF PRESENT ILLNESS The patient is a very pleasant 61-year-old woman with a history of poorly controlled diabetes and also a probable TIA about 2 weeks ago. The patient presented with nonspecific symptoms such as hyperglycemia and a headache and was found to have atrial fibrillation with mildly rapid rate. She was started on Cardizem drip and I was consulted to evaluate her. Currently the patient says she feels tired but no specific symptoms. She denies any chest pain, shortness of breath, palpitations but she does describe a "episode about 2 weeks ago." The patient describes being in the kitchen when she suddenly was unable to get her words out and kept repeating herself. Her family thought she was having a stroke but the patient did not seek any medical attention and just went to bed and when she woke up in the morning the symptoms had resolved. PAST MEDICAL HISTORY 1. Poorly controlled diabetes 2. Likely TIA. 3. Obesity 4. Hypertension 5. Hyperlipidemia. MEDICATIONS Current medications: 1. Aspirin 81 milligrams daily 2. Atorvastatin 40 milligrams daily. 3. Celexa 4. Plavix 75 mg daily. 5. Neurontin 400 mg b.i.d. 6. Lisinopril 30 mg daily 7. Protonix 40 milligrams b.i.d. 8. Lovenox 70 mg subcu q. 12. 9. Glipizide. ALLERGIES Codeine. PHYSICAL EXAMINATION Afebrile, pulse 99, respiratory rate 90, BP 122/74, sating 98% on room air. General: Very pleasant woman in no distress. Neck: No JVD. Lungs: Clear auscultation bilaterally. Cardiovascular: Irregularly irregular rhythm with a mildly rapid rate. No murmurs appreciated. Abdomen: Benign. Extremities: No edema. LABORATORY DATA: White count 6.9, hematocrit 40.7, platelet count 175. Sodium 140, potassium 3.6, chloride 104, bicarb 26.3, BUN 12, creatinine 0.62, glucose 266 down from 468, LDL is 115. EKG showed an atrial fibrillation with a mildly rapid rate and nonspecific ST changes. Current telemetry shows the same. IMPRESSION: Atrial fibrillation. The patient with atrial fibrillation has a very high stroke risk given her diabetes, hypertension, gender and also prior likely TIA. I have started her on Eliquis and stopped her Lovenox. For rate control, I have added oral Cardizem and hopefully her Cardizem drip can be weaned off once her dose is established, short-acting, can be changed to long-acting Cardizem. An echocardiogram is pending. Further recommendations based on her clinical course. Thank you again for the opportunity to participate in this patient's care. MD HUE Mason/SAJI /10:05 AM /10:26 AM
[2017-04-01] MEDS: DILTIAZEM HCL 60 MG TAB PO SCH ×3 (11:38→23:03)
--- NOTE | 2017-04-01 11:50 | EKG ---
Date Performed: 03/31/2017 Time Performed: 19:26:24 PTAGE: 61 years EKG: ATRIAL FIBRILLATION WITH RAPID VENTRICULAR RESPONSE ANTEROSEPTAL MYOCARDIAL INFARCTION ABNO RMAL ECG NO PREVIOUS TRACING DOCTOR: Martín Loza Interpretating Date/Time 04/01/2017 11:48:04
[2017-04-01 13:13] LABS: HEMOGLOBIN A1a 1.4 %; HEMOGLOBIN A1b 0.9 %; HEMOGLOBIN Ao 74.6 %; HEMOGLOBIN F 2.6 %; HEMOGLOBIN LA1C 3.1 %; HEMOGLOBIN P3 4.8 %
--- NOTE | 2017-04-01 13:23 | RADRPT ---
EXAM DATE/TIME: 04/01/2017 12:48 [facility] COMPARISON: No previous studies available for comparison. INDICATIONS : Episode of expressive aphasia. MEDICAL HISTORY : Hypercholesterolemia. Diabetes mellitus type 2. Hypercholesterolemia. SURGICAL HISTORY : Hysterectomy. Cholecystectomy. ENCOUNTER: Initial ACUITY: 1 day PAIN SCORE: 0/10 LOCATION: cranial TECHNIQUE: Multiplanar, multisequence MRI of the brain was performed without contrast. FINDINGS: CEREBRUM: The ventricles are normal for age. No evidence of midline shift, mass lesion, hemorrhage or acute in farction. No extraaxial fluid collections are seen. The pituitary gland and suprasellar cistern are normal in configuration. WHITE MATTER: No significant signal abnormalities are seen in the white matter. POSTERIOR FOSSA: The cerebellum and brainstem are intact. The 4th ventricle is midline. The cerebellopontine angle is unremarkable. The cerebellar tonsils are normal in position. DIFFUSION IMAGING: No focal areas of restricted diffusion are seen. No evidence of acute infarction. EXTRACRANIAL: The visualized portions of the orbits and paranasal sinuses are unremarkable. 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 CONCLUSION: No acute disease. Allen Chung MD on April 01, 2017 at 13:18 Board Certified Radiologist. This report was verified electronically.
--- NOTE | 2017-04-01 13:27 | RADRPT ---
EXAM DATE/TIME: 04/01/2017 12:48 [facility] COMPARISON: MRA BRAIN W/O CONTRAST, March 27, 2017, 7:48. INDICATIONS : Episode of expressive aphasia. MEDICAL HISTORY : Hypertension. Diabetes mellitus type 2. Hypercholesterolemia. SURGICAL HISTORY : Hysterectomy. Cholecystectomy. ENCOUNTER: Initial ACUITY: 1 day PAIN SCORE: 0/10 LOCATION: cranial Please note a normal MRA of the brain does not entirely exclude the possibility of a small aneurysm, nor the possibility of distal intracranial vessel disease. TECHNIQUE: 3D time of flight MRA was performed. Source images, multiplanar STS MIP, and 3D volume MIP reconstru ctions were reviewed. FINDINGS: There is excellent visualization of the major intracranial arteries out to the second-order branch ve ssels. There is no evidence for aneurysm. Again noted are 2 adjacent areas of mild to moderate narro wing of the proximal right posterior cerebral artery. There is also mild narrowing of the distal aspe ct of the right A1 segment of the anterior cerebral artery. The A2 segments are symmetric. The distal flow appears normal. CONCLUSION: Persistent areas of mild to moderate narrowing of the posterior and anterior cerebral arteries on the right. Allen Chung MD on April 01, 2017 at 13:21 Board Certified Radiologist. This report was verified electronically.
--- NOTE | 2017-04-01 15:18 | ECHRPT ---
Indication: Persistent atrial fibrillation CONCLUSIONS Normal left ventricular size. Moderate concentric left ventricular hypertrophy. There is mild tricuspid valve regurgitation. The estimated pulmonary arterial pressure is _35_ mmHg. Trivial posterior pericardial effusion seen. BP: / HR: Rhythm: MEASUREMENTS (Male / Female) Normal Values Technical Quality: Fair 2D ECHO LV Diastolic Diameter PLAX 3.0 cm 4.2 - 5.9 / 3.9 - 5.3 cm LV Systolic Diameter PLAX 2.1 cm IVS Diastolic Thickness 1.8 cm 0.6 - 1.0 / 0.6 - 0.9 cm LVPW Diastolic Thickness 1.5 cm 0.6 - 1.0 / 0.6 - 0.9 cm LV Relative Wall Thickness 1.1 RV Internal Dim ED PLAX 2.2 cm M-MODE Aortic Root Diameter MM 2.7 cm LA Systolic Diameter MM 3.0 cm LA Ao Ratio MM 1.1 AV Cusp Separation MM 2.1 cm DOPPLER TR Peak Velocity 252.0 cm/s TR Peak Gradient 25.4 mmHg FINDINGS LEFT VENTRICLE This study was not technically sufficient to allow for evaluation of left ventricular diastolic func tion. Normal left ventricular size. Moderate concentric left ventricular hypertrophy. The left ventricular systolic function is normal with an estimated ejection fraction in the range of 60-65%. RIGHT VENTRICLE There is a prominent moderator band observed in the right ventricle (benign finding). Normal right ventricular size and systolic function. LEFT ATRIUM The left atrial size is normal. RIGHT ATRIUM The right atrial size is normal. ATRIAL SEPTUM Normal atrial septal thickness without atrial level shunting by limited color doppler interrogation. AORTA The aortic root and proximal ascending aorta are normal in size on limited imaging. MITRAL VALVE Structurally normal mitral valve. AORTIC VALVE Trileaflet aortic valve. No aortic valve stenosis or regurgitation. TRICUSPID VALVE Structurally normal tricuspid valve. There is mild tricuspid valve regurgitation. The estimated pulmonary arterial pressure is _35_ mmHg. PULMONARY VALVE The pulmonary valve is not well visualized. VESSELS The inferior vena cava is normal in size. PERICARDIUM Trivial posterior pericardial effusion seen. Clemente Boswell MD (Electronically Signed) Final Date:01 April 2017 15:17
--- NOTE | 2017-04-01 21:21 | HHI.PR ---
Subjective Remarks Patient seen this morning. Sleeping, wakes up for exam. Denies any chest pain or shortness of breath. Objective Vital Signs Date Time Temp Pulse Resp B/P Pulse Ox O2 Delivery O2 Flow Rate FiO2 04/01/17 18:00 84 04/01/17 17:00 60 04/01/17 16:00 63 04/01/17 15:00 97.9 60 22 137/73 96 04/01/17 15:00 64 04/01/17 14:00 57 04/01/17 13:00 62 04/01/17 12:00 84 04/01/17 11:38 20 04/01/17 11:00 93 04/01/17 11:00 98.4 96 21 131/85 96 04/01/17 10:00 93 04/01/17 09:00 104 04/01/17 08:00 99 04/01/17 07:15 98.3 86 19 122/74 98 04/01/17 07:00 70 04/01/17 06:05 88 04/01/17 05:08 79 04/01/17 04:39 76 04/01/17 03:36 82 04/01/17 03:20 98.0 70 102/64 97 04/01/17 01:45 93 04/01/17 01:32 98.1 102 136/86 99 03/31/17 23:41 91 16 146/81 99 Room Air 03/31/17 23:12 80 16 125/72 99 Nasal Cannula 2 I/O 03/31/17 03/31/17 03/31/17 04/01/17 04/01/17 04/01/17 07:00 15:00 23:00 07:00 15:00 23:00 Intake Total 480 ml 1920 ml Output Total 300 ml 1600 ml Balance 180 ml 320 ml Intake Oral 480 ml 840 ml IV Total 1080 ml Output Urine Total 300 ml 1600 ml Result Diagram: 04/01/1781704/01/17817 Objective Remarks GENERAL: patient lying in bed. Wakes up for exam. Appears comfortable. SKIN: Warm and dry. HEAD: Normocephalic. EYES: No scleral icterus. No injection or drainage. NECK: Supple, trachea midline. No JVD, CARDIOVASCULAR: Regular rate and rhythm without murmurs, gallops, or rubs. RESPIRATORY: Breath sounds equal bilaterally. No accessory muscle use. GASTROINTESTINAL: Abdomen soft, non-tender, nondistended. MUSCULOSKELETAL: No cyanosis, or edema. BACK: Nontender without obvious deformity. No CVA tenderness. A/P Assessment and Plan ======04/01/17 Heart rate controlled on Cardizem. Vitals reviewed. Blood pressure acceptable. Appreciate cardiology assistance. Echocardiogram pending //New Onset A-fib: A-fib w/ HR 120-130's while in ER, s/p Cardizem IV x2, HR now 90-110's. Telemetry. Start Metoprolol. Check Echo, Consult Cardiology for further recommendations. Will start anticoagulation in light of multiple comorbidities. Check serial cardiac enzymes to eval for underlying ischemia. //Headache: Likely secondary to uncontrolled HTN. CT Head w/ no acute findings. Dr. Clark consulted by ER physician, recommended additional imaging , CTA Head/Neck. 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 CTA With no acute findings. Analgesics as needed. //Hypokalemia: K+ 3.3 on admission. Resolved after replacement. //HTN: BP 140-150's, continue home medications, monitor BP. //DM: Sliding scale w/ Accu-Cheks. Hold Metformin. A1c 12.6. Consult ict educator. //DVT Prophylaxis: Lovenox Discharge Planning likely discharge home tomorrow when cleared by cardiology. We'll need to be on insulin. Alex Yadav MD Apr 01, 2017 21:20
[2017-04-01] MEDS ORDERED: INSULIN DETEMIR 100 UNITS/ML VIAL SQ SCH (21:30)
[2017-04-02] VITALS (13 sets, daily range): BP systolic 138–163; BP diastolic 74–89; PULSE 58–84; RESP 16–22; TEMP 97.5–98.3; O2SAT 96–98
[2017-04-02] MEDS: glipiZIDE 10 MG TAB PO SCH (05:32)
[2017-04-02] MEDS: SODIUM CHLOR 0.9% 1000 ML INJ 1,000 ML IV SCH (05:32)
[2017-04-02] MEDS: DILTIAZEM HCL 60 MG TAB PO SCH (05:32)
[2017-04-02] MEDS: INSULIN ASPART SUPPLEMENTAL SCALE SQ SCH ×2 (06:10→12:12)
[2017-04-02] MEDS: SODIUM CHLORIDE 0.9% FLUSH 10 ML FLUSH IV FLUSH SCH (09:00)
--- NOTE | 2017-04-02 09:02 | PD.CARD.PN ---
Subjective Subjective Remarks Converted to NSR, feels very well, no complaints. Objective Medications Administered Medications Medications (Trade) Dose Ordered Sig/Be Route PRN Reason Start Time Stop Time Status Last Admin Dose Admin Diltiazem HCl/ Sodium Chloride (Cardizem Inj/NS Inj) 125 ml @ 0 mls/hr TITRATE IV 03/31/17 20:00 03/31/17 20:35 Aspirin (Ecotrin Ec) 81 mg DAILY PO 04/01/17 09:00 04/01/17 09:12 Atorvastatin Calcium (Lipitor) 40 mg DAILY PO 04/01/17 09:00 04/01/17 09:12 Citalopram Hydrobromide (CeleXA) 20 mg DAILY PO 04/01/17 09:00 04/01/17 09:13 Gabapentin (Neurontin) 400 mg BID PO 04/01/17 09:00 04/01/17 20:48 Glipizide (Glucotrol) 10 mg BIDAC PO 04/01/17 07:00 04/02/17 05:32 Lisinopril (Prinivil) 30 mg DAILY PO BPM 04/01/17 09:00 04/01/17 09:12 Pantoprazole Sodium (Protonix) 40 mg BID PO 04/01/17 09:00 04/01/17 20:48 Melatonin 5 mg 5 mg HS PRN PO SLEEP 03/31/17 23:00 04/01/17 02:41 Sodium Chloride (NS 1000 ml Inj) 1,000 ml @ 100 mls/hr Q10H IV 03/31/17 23:14 04/02/17 05:32 Sodium Chloride (NS Flush) 2 ml BID IV FLUSH 04/01/17 09:00 04/01/17 20:49 Acetaminophen (Tylenol) 650 mg Q6H PRN PO FEVER/PAIN SCALE 1 TO 2 03/31/17 23:15 04/01/17 10:29 Morphine Sulfate (Morphine Inj) 2 mg Q3H PRN IV Pain 6-10 03/31/17 23:15 03/31/17 23:38 Senna/Docusate Sodium (Ginny-Colace) 1 tab BID PO 04/01/17 09:00 04/01/17 20:48 Apixaban (Eliquis) 5 mg BID PO 04/01/17 10:15 04/01/17 20:48 Diltiazem HCl (Cardizem) 60 mg Q6HR PO 04/01/17 12:00 04/02/17 05:32 Insulin Detemir (Levemir Inj) 5 units HS SQ 04/01/17 21:30 04/01/17 23:05 Vital Signs / I&O Vital Signs Date Time Temp Pulse Resp B/P Pulse Ox O2 Delivery O2 Flow Rate FiO2 04/02/17 07:15 68 04/02/17 07:15 97.6 65 16 138/81 98 04/02/17 07:15 98 Room Air 04/02/17 05:00 61 04/02/17 04:00 98.0 58 18 139/74 96 04/02/17 04:00 Room Air 04/02/17 04:00 58 04/02/17 03:00 60 04/02/17 02:00 62 04/02/17 01:00 64 04/02/17 00:00 66 04/02/17 00:00 98.3 66 20 163/89 97 04/02/17 00:00 Room Air 04/01/17 23:00 67 04/01/17 22:00 64 04/01/17 21:00 67 04/01/17 20:00 98.1 65 18 140/80 97 04/01/17 20:00 65 04/01/17 18:00 84 04/01/17 17:00 60 04/01/17 16:00 63 04/01/17 15:00 97.9 60 22 137/73 96 04/01/17 15:00 64 04/01/17 14:00 57 04/01/17 13:00 62 04/01/17 12:00 84 04/01/17 11:38 20 04/01/17 11:00 93 04/01/17 11:00 98.4 96 21 131/85 96 04/01/17 10:00 93 I/O 04/01/17 04/01/17 04/01/17 04/02/17 04/02/17 04/02/17 07:00 15:00 23:00 07:00 15:00 23:00 Intake Total 480 ml 1920 ml 1840 ml Output Total 300 ml 1600 ml 1500 ml Balance 180 ml 320 ml 340 ml Intake Oral 480 ml 840 ml 840 ml IV Total 1080 ml 1000 ml Output Urine Total 300 ml 1600 ml 1500 ml # Bowel Movements 0 Physical Exam GENERAL: This is a well-nourished, well-developed patient, in no apparent distress. CARDIOVASCULAR: Regular rate and rhythm without murmurs, gallops, or rubs. RESPIRATORY: Clear to auscultation. Breath sounds equal bilaterally. No wheezes , rales, or rhonchi. GASTROINTESTINAL: Abdomen soft, non-tender, nondistended. Normal active bowel sounds MUSCULOSKELETAL: Extremities without clubbing, cyanosis, or edema. NEURO: Alert & Oriented x4 to person, place, time, situation. Moves all ext x4 Imaging Last Impressions Head Magnetic Resonance Angiography 04/01/17 Signed Impressions: Service Date/Time: Saturday, April 01, 2017 12:48 - CONCLUSION: Persistent areas of mild to moderate narrowing of the posterior and anterior cerebral arteries on the right. Allen Chung MD Brain MRI 04/01/17 Signed Impressions: Service Date/Time: Saturday, April 01, 2017 12:48 - CONCLUSION: No acute disease. Allen Chung MD Neck CTA 03/31/17 Signed Impressions: Service Date/Time: Friday, March 31, 2017 21:42 - CONCLUSION: No acute disease. Danis Messer MD Head CTA 03/31/17 0000 Signed Impressions: Service Date/Time: Friday, March 31, 2017 21:42 - CONCLUSION: 1. Moderate focal stenosis involving the right proximal posterior cerebral artery and mild focal stenosis involving the left proximal posterior cerebral artery. 2. No significant stenosis or occlusion of the anterior or middle cerebral arteries. Danis Messer MD Chest X-Ray 03/31/17 Signed Impressions: Service Date/Time: Friday, March 31, 2017 20:15 - CONCLUSION: No acute disease. Danis Messer MD Assessment and Plan Problem List: (1) New onset a-fib Assessment and Plan: now in NSR, will change diltiazem to long acting, continue eliquis and asa (due to vascular dz). Assessment and Plan Ok to d/c home from cardiac standpoint. Clemente Boswell MD Apr 02, 2017 09:02
[2017-04-02] MEDS: CITALOPRAM HYDROBROMIDE 20 MG TAB PO SCH (09:44)
[2017-04-02] MEDS: LISINOPRIL 10 MG TAB PO SCH (09:44)
[2017-04-02] MEDS: DOCUSATE SODIUM 50 MG/SENNA 8.6 MG TAB PO SCH (09:44)
[2017-04-02] MEDS: GABAPENTIN 400 MG CAP PO SCH (09:44)
[2017-04-02] MEDS: APIXABAN 5 MG TABLET PO SCH (09:44)
[2017-04-02] MEDS: ASPIRIN EC 81 MG TABEC PO SCH (09:44)
[2017-04-02] MEDS: PANTOPRAZOLE SOD 40 MG DELAYED RELEASE TAB PO SCH (09:44)
[2017-04-02] MEDS: ATORVASTATIN 40 MG TAB PO SCH (09:44)
[2017-04-02] MEDS ORDERED: NOVOLOGSS SQ (11:10)
[2017-04-02] MEDS ORDERED: LEVEMIR SQ (11:10)
[2017-04-02] MEDS ORDERED: CARD240C6 PO (11:10)
[2017-04-02] MEDS ORDERED: APIX5TAB PO (11:10)
[2017-04-02] MEDS ORDERED: INSU1MIS (11:16)
[2017-04-02] MEDS ORDERED: BLOOD GLUCOSE T1 TES (11:16)
[2017-04-02] MEDS ORDERED: BLOOD GLUCOSE M1 KIT (11:16)
[2017-04-02] MEDS ORDERED: ALCO1PAD (11:16)
[2017-04-02] MEDS ORDERED: LANC30MI (11:16)
--- NOTE | 2017-04-02 11:20 | HHI.FF ---
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 diabetic education. I have seen patient Kayleigh Mazariegos on 04/02/17. My clinical findings support the need for the requested home health care services because: Med compliance is questionable I certify that my clinical findings support that this patient is homebound because: Need for psychosocial assistance Alex Yadav MD Apr 02, 2017 11:20
[2017-04-03] MEDS ORDERED: DILTIAZEM-CD 240 MG CAP ER PO SCH (09:00)
--- NOTE | 2017-04-05 15:45 | HHI.DS ---
Discharge Summary Admission Date Mar 31, 2017 at 22:38 Discharge Date: Apr 02, 2017 Admitting Diagnosis new onset afib (1) New onset a-fib ICD Code: I48.91 (2) Headache ICD Code: R51 (3) Hypokalemia ICD Code: E87.6 (4) HTN (hypertension) ICD Code: I10 (5) DM (diabetes mellitus) ICD Code: E11.9 Brief History - From Admission This is a 61-year-old female with a PMH of HTN, Hyperlipidemia and DM who presented to the ER with complaints of headache x2 wks. States she's been "feeling sick" for 2wks, reports intermittent episodes of dizziness, gait instability and speech disturbance. Was seen by PCP, Dr. Bolanos on 03/15/17 for elevated BS, Levemir increased to 40u bid, later seen on 03/22/17 for being "out of it" and noted to have elevated BS and BP 198/100, s/p Clonidine in office and Levemir increased to 50u bid. Reports compliance with medications. Today, pt noted significant headache. On arrival, BP 155/81, HR 68, O2 sat 98% on RA, Afebrile. CBC unremarkable. K+ 3.3. BS 468. Troponin 0.04. CXR with no acute findings. CT Head negative. Dr. Clark consulted by ER physician secondary to headache, recommended CTA Head/Neck. CTA Head w/ moderate focal stenosis Right REAL ESTATE JOB TITLES and mild stenosis Left REAL ESTATE JOB TITLES. While in ER, pt noted to have episode of A-fib w/ HR 130's, s/p Cardizem IV x2 doses w/ HR now 90-110's. No complaints at this time. CBC/BMP: 04/01/17 0818 04/01/1718 Imaging Last Impressions Head Magnetic Resonance Angiography 04/01/17 0000 Signed Impressions: Service Date/Time: Saturday, April 01, 2017 12:48 - CONCLUSION: Persistent areas of mild to moderate narrowing of the posterior and anterior cerebral arteries on the right. Allen Chung MD Brain MRI 04/01/17 0000 Signed Impressions: Service Date/Time: Saturday, April 01, 2017 12:48 - CONCLUSION: No acute disease. Allen Chung MD Neck CTA 03/31/17 0000 Signed Impressions: Service Date/Time: Friday, March 31, 2017 21:42 - CONCLUSION: No acute disease. Danis Messer MD Head CTA 03/31/17 0000 Signed Impressions: Service Date/Time: Friday, March 31, 2017 21:42 - CONCLUSION: 1. Moderate focal stenosis involving the right proximal posterior cerebral artery and mild focal stenosis involving the left proximal posterior cerebral artery. 2. No significant stenosis or occlusion of the anterior or middle cerebral arteries. Danis Messer MD Chest X-Ray 03/31/17 0000 Signed Impressions: Service Date/Time: Friday, March 31, 2017 20:15 - CONCLUSION: No acute disease. Danis Messer MD Hospital Course ======04/01/17 Heart rate controlled on Cardizem. Vitals reviewed. Blood pressure acceptable. Appreciate cardiology assistance. Echocardiogram pending //New Onset A-fib: A-fib w/ HR 120-130's while in ER, s/p Cardizem IV x2, HR now 90-110's. Telemetry. Start Metoprolol. Check Echo, Consult Cardiology for further recommendations. Will start anticoagulation in light of multiple comorbidities. Check serial cardiac enzymes to eval for underlying ischemia. //Headache: Likely secondary to uncontrolled HTN. CT Head w/ no acute findings. Dr. Clark consulted by ER physician, recommended additional imaging , CTA Head/Neck. CTA Head with artery stenosis Right REAL ESTATE JOB TITLES and mild stenosis Left REAL ESTATE JOB TITLES. CTA With no acute findings. Analgesics as needed. //Hypokalemia: K+ 3.3 on admission. Resolved after replacement. //HTN: BP 140-150's, continue home medications, monitor BP. //DM: Sliding scale w/ Accu-Cheks. Hold Metformin. A1c 12.6. Consult art educator. //DVT Prophylaxis: Lovenox Discharge Planning likely discharge home tomorrow when cleared by cardiology. We'll need to be on insulin. Pt Condition on Discharge: Good Discharge Disposition: Disch w/ Home Health Serv Discharge Time: > 30 minutes Discharge Instructions DIET: Follow Instructions for: Diabetic Diet Activities you can perform: Regular-No Restrictions Follow up Referrals: Cardiology - 1 Week with Clemente Boswell MD PCP Follow-up - 1 Week with Gloria Bolanos MD New Medications: Alcohol Swabs (Alcohol Prep Pads) 70 % Pad 1 PAD .ROUTE DIRECTED Aseptic process #1 Ref 0 BOX Blood Glucose Monitoring W/Device (Blood Glucose Monitoring W/Device) 1 Kit Kit 1 KIT .ROUTE DIRECTED Blood Sugar Management #1 Ref 0 KIT Blood Glucose Test Strips (Blood Glucose Test Strips) Strips Strip 1 EA .ROUTE DIRECTED Blood Sugar Management #1 Ref 0 BOX Insulin Syringe/Needle U-100 (Insulin Syringe/U-100/1Ml 28G X 1/2" 1 ml) 1 Mis Mis 1 EA .ROUTE DIRECTED Blood Sugar Management #1 BOX Lancets (Lancets 30G) 1 Mis Mis 1 STRIP .ROUTE DIRECTED Blood Sugar Management #1 BOX Apixaban (Eliquis) 5 Mg Tab 5 MG PO BID prevent stroke Days 30 TAB Diltiazem CD 24 HR (Cardizem CD 24 HR) 240 Mg Caper 240 MG PO DAILY heart Days 30 CAP Insulin Aspart Inj (Novolog Inj) 100 Unit/Ml Inj 1 INJECTION SQ ACHS SLIDING SCALE Blood Sugar Management Days 30 INJECTION Insulin Detemir Inj (Levemir Inj) 1,000 unit/ 10 ML Vial 10 UNITS SQ HS Diabetes Days 30 INJECTION Continued Medications: Aspirin DR (Aspir-81) 81 Mg Tabdr 81 MG PO DAILY Atorvastatin (Atorvastatin) 40 Mg Tab 40 MG PO DAILY Cholesterol Management #30 Ref 0 TAB Citalopram (Citalopram) 20 Mg Tab 20 MG PO DAILY Control Depression #30 Ref 0 TAB Gabapentin (Gabapentin) 400 Mg Cap 400 CAP PO BID #30 Ref 0 CAP Glipizide (Glipizide) 10 Mg Tab 10 MG PO BIDAC Take 30 minutes before a meal Blood Sugar Management #60 Ref 0 TAB Lisinopril (Lisinopril) 30 Mg Tab 30 MG PO DAILY Blood Pressure Management #30 Ref 3 TAB Metformin (Metformin) 500 Mg Tab 1000 MG PO BIDPC With meals Blood Sugar Management #120 Ref 0 TAB Omeprazole (Omeprazole) 20 Mg Tab 40 MG PO BID #30 Ref 0 TAB Sennosides-Docusate Sodium (Ginny-Colace) 8.6-50 Mg Tab 1 TAB PO DAILY Constipation #60 Ref 0 TAB Discontinued Medications: Atenolol (Atenolol) 100 Mg Tab 100 MG PO DAILY Blood Pressure Management #30 Ref 0 TAB Clopidogrel (Plavix) 75 Mg Tab 75 MG PO DAILY Blood Clot Prevention #30 Ref 3 TAB Insulin Detemir Inj (Levemir Inj) 1,000 unit/ 10 ML Vial 50 UNITS SQ BID Do not mix with any other Insulin. Blood Sugar Management Ref 0 VIAL Spironolactone (Spironolactone) 25 Mg Tab 25 MG PO DAILY #30 Ref 0 TAB Alex Yadav MD Apr 05, 2017 15:45
[2017-04-13] MEDS ORDERED: APIX5TAB PO (08:58)
[2017-04-13] MEDS ORDERED: LEVEMIR SQ (08:58)
[2017-04-13] MEDS ORDERED: CARD240C6 PO (08:58)
[2017-04-13] MEDS ORDERED: NOVOLOGSS SQ (08:58)
[2017-04-13] MEDS ORDERED: INSU1MIS (08:58)
[2017-04-13] MEDS ORDERED: NOVORP2 SQ (09:13)
== END 2017-04-02 14:55 | disposition home health service (06) ==
LOC: NEPC 18:08 → NEDA 22:38 → UNDOADMOB 22:38 → NEDA 04-01 00:57 → HCIS 04-01 00:57 → UNDODISOB 04-02 14:55
PROVIDERS: ADMIT Internal Medicine; ATTEND Internal Medicine
DX: I48.91 Unspecified atrial fibrillation (principal); E87.6 Hypokalemia; E78.00 Pure hypercholesterolemia, unspecified; R51 Headache; E11.65 Type 2 diabetes mellitus with hyperglycemia; Z79.84 Long term (current) use of oral hypoglycemic drugs; I10 Essential (primary) hypertension; M19.90 Unspecified osteoarthritis, unspecified site; E66.9 Obesity, unspecified; Z68.29 Body mass index [BMI] 29.0-29.9, adult; Z79.899 Other long term (current) drug therapy; Z79.82 Long term (current) use of aspirin; E78.5 Hyperlipidemia, unspecified
CPT/HCPCS: 70496; 70498; 70544; 70551; 71010; 76937; 80053; 80061; 82948; 83036; 84484; 85025; 85652; 86140; 93005; 93306; 96361; 96365; 96372; 96375; 99285; G0378; J1650; J1815; J2270; J7030; J7040; Q9967

== ENCOUNTER 2017-04-13 17:38 | Observation (INO) | payer OTHER ==
[~2017-04-13] VITALS: Ht 160 cm; Wt 72.0 kg
[~2017-04-13 17:38] MED LIST changes: +ALCO1PAD; +APIX5TAB PO; -ATEN100T PO; -BAYEMIS; +BLOOD GLUCOSE M1 KIT; +BLOOD GLUCOSE T1 TES; +CARD240C6 PO; -GLUCTES27; -INSU-150; +INSU1MIS; +LANC30MI; +NOVOLOGSS SQ; +NOVORP2 SQ; -PLAV75TA29 PO; -SPIR25TA PO
[2017-04-13 17:40] VITALS: BP 166/79; PULSE 72; RESP 20; TEMP 98.2; O2SAT 97
--- NOTE | 2017-04-13 17:55 | PD ---
Physical Exam Time Seen by Provider: 17:52 Narrative 61yo F c/o dizziness and intermittent nausea today. Had similar sx 2 weeks ago when she was dx w/Afib. Takes Eloquis and Diltazem. +[place]. Denies fever, vomiting. Patient seen in triage. VS reviewed. Awaiting bed placement. Data Data Last Documented VS Vital Signs Date Time Temp Pulse Resp B/P Pulse Ox O2 Delivery O2 Flow Rate FiO2 04/13/17 17:40 98.2 72 20 166/79 97 Room Air MDM Supervised Visit with LACEY: Lina Bella Apr 13, 2017 17:55
--- NOTE | 2017-04-13 18:11 | PD ---
HPI . dizziness for several weeks and chest pain Chief Complaint: Dizziness Time Seen by Provider: 18:11 Travel History International Travel<30 days: No Contact w/Intl Traveler<30days: No Traveled to known affect area: No History of Present Illness HPI 61-year-old female with history of hypertension, diabetes, hyperlipidemia and osteoarthritis here with complaints of dizziness for several weeks. I actually saw this patient about 2 weeks ago and she was dx with new onset Afib. She was admitted and seen by both cardiology and neurology. Neurology actually signed off the case. Patient has had this dizziness for quite some time and tells me that she was told she had some cysts in her head back in [place] several years ago. She c/o headaches and dizziness in the past and was seen in the community clinic on March 22, 2017 for an episode of "being out of sorts." Patient had a full workup including a head CT, had MRA, carotid ultrasound and head CT. Head CT was normal. Head MRA demonstrated a moderate stenosis and focal stenosis and had some findings that were possibly representing atherosclerotic disease versus vasculitis. She also had a carotid ultrasound that demonstrated no significant stenosis. Today she tells me that she is not currently dizzy and was able to walk in ED perfectly fine. She reports that she had an episode of dizziness at home and thought she might fall, but did not fall and did not have a syncopal episode or LOC. She tells me she is a patient of the community clinic and that her services are limited. She says they have not been able to get her in with neurology. She denies any other symptoms. PFSH Past Medical History Cardiovascular Problems: Yes (htn, afib) High Cholesterol: Yes Diabetes: Yes (metformin) Hypertension: Yes Past Surgical History Hysterectomy: Yes Social History Alcohol Use: No Tobacco Use: No Substance Use: No Allergies-Medications (Allergen,Severity, Reaction): Coded Allergies: Codeine (Verified Adverse Reaction, Severe, Nausea/Vomiting, 04/13/17) Reported Meds & Prescriptions Reported Meds & Active Scripts Active Novolog Inj (Insulin Aspart) 100 Unit/Ml Inj 1 Injection SQ ACHS SLIDING SCALE 30 Days Levemir Inj (Insulin Detemir) 1,000 unit/ 10 ML Vial 55 Units SQ BID 30 Days Patient will take 60 units in the AM 55 units in the PM Cardizem CD 24 HR (Diltiazem CD 24 HR) 240 Mg Caper 240 Mg PO DAILY Alcohol Prep Pads (Alcohol Swabs) 70 % Pad 1 Pad .ROUTE DIRECTED Lisinopril 30 Mg Tab 30 Mg PO DAILY Metformin (Metformin HCl) 500 Mg Tab 1,000 Mg PO BIDPC With meals Glipizide 10 Mg Tab 10 Mg PO BIDAC Take 30 minutes before a meal Omeprazole 20 Mg Tab 40 Mg PO BID Citalopram (Citalopram Hydrobromide) 20 Mg Tab 20 Mg PO DAILY Atorvastatin (Atorvastatin Calcium) 40 Mg Tab 40 Mg PO DAILY Reported Gabapentin 400 Mg Cap 400 Cap PO BID Aspir-81 (Aspirin) 81 Mg Tabdr 81 Mg PO DAILY Ginny-Colace (Sennosides-Docusate Sodium) 8.6-50 Mg Tab 1 Tab PO DAILY Review of Systems General / Constitutional: No: Fever Eyes: No: Visual changes HENT: No: Headaches Cardiovascular: Positive: Chest Pain or Discomfort Respiratory: No: Shortness of Breath Gastrointestinal: No: Abdominal Pain Genitourinary: No: Dysuria Musculoskeletal: No: Pain Skin: No Rash Neurologic: Positive: Dizziness (chronic), No: Weakness Psychiatric: No: Depression Endocrine: No: Polydipsia Hematologic/Lymphatic: No: Easy Bruising Physical Exam Narrative GENERAL: AAO x 3, no acute distress, Well-nourished, well-developed patient. SKIN: Warm and dry. No visible rashes or bruising. HEAD: Normocephalic and atraumatic. No tenderness to palpation EYES: No scleral icterus. No injection or drainage. EOM intact, PERRLA ENT: No nasal drainage noted. Mucous membranes pink. Airway patent. TMs normal bilaterally. NECK: Supple, trachea midline. No JVD. No lymphadenopathy CARDIOVASCULAR: Regular rate and rhythm without murmurs, gallops, or rubs. Pain is reproducible on examination. RESPIRATORY: Breath sounds equal bilaterally. No accessory muscle use. No rhonchi or rales. GASTROINTESTINAL: Abdomen soft, non-tender, nondistended. EXTREMITIES: No cyanosis or edema. BACK: Nontender without obvious deformity. No CVA tenderness. NEURO: CN II-12 intact, librarian assistant strength normal b/l, UE and LE 5/5, no focal deficits PSYCH: AAO x 3, normal affect. Data Data Last Documented VS Vital Signs Date Time Temp Pulse Resp B/P Pulse Ox O2 Delivery O2 Flow Rate FiO2 04/13/17 18:52 99 04/13/17 18:05 16 Room Air 04/13/17 17:40 98.2 72 166/79 Orders Electrocardiogram (04/13/17 18:22) Basic Metabolic Panel (Bmp) (04/13/17 18:22) Ckmb (Isoenzyme) Profile (04/13/17 18:22) Complete Blood Count With Diff (04/13/17:) Magnesium (Mg) (04/13/17 18:22) Prothrombin Time / Inr (Pt) (04/13/17 18:22) Act Partial Throm Time (Ptt) (04/13/17 18:22) Troponin I (04/13/17 18:22) Chest, Single Ap (04/13/17:) Ecg Monitoring (04/13/17 18:22) Bilateral Bp Monitoring (04/13/17:22) Iv Access Insert/Monitor (04/13/17:) Oximetry (04/13/17 18:22) Oxygen Administration (04/13/17 18:22) Sodium Chloride 0.9% Flush (Ns Flush) (04/13/17 18:30) Sodium Chlor 0.9% 1000 Ml Inj (Ns 1000 M (04/13/17 20:30) CKMB (04/13/17 18:50) CKMB% (04/13/17 18:50) Insulin Human Regular Inj (Novolin R Inj (04/13/17 20:30) Admit Order (Ed Use Only) (04/13/17 21:10) Activity Bed Rest With Brp (04/13/17 21:11) Vital Signs (Adult) Q4H (04/13/17 21:11) Cardiac Rhythm .As Directed (04/13/17 21:11) Notify Dr: Other .PRN (04/13/17 21:11) Notify . Parameters (04/13/17 21:11) Resp Oxygen Nasal Cannula (04/13/17 ) Ckmb (Isoenzyme) Profile (04/13/17 21:50) Ckmb (Isoenzyme) Profile (04/14/17 00:50) Troponin I (04/13/17 21:50) Troponin I (04/14/17 00:50) Electrocardiogram (04/13/17 21:50) Electrocardiogram (04/14/17 00:50) ^ Obtain (04/13/17 21:11) Sodium Chloride 0.9% Flush (Ns Flush) (04/13/17 21:15) Sodium Chloride 0.9% Flush (Ns Flush) (04/14/17 09:00) Dock Clerk / Telemetry DENISSE.Q8H (04/13/17 21:11) Labs Laboratory Tests Test 04/13/17 18:50 White Blood Count 4.4 TH/MM3 Red Blood Count 4.40 MIL/MM3 Hemoglobin 12.5 GM/DL Hematocrit 36.6 % Mean Corpuscular Volume 83.2 FL Mean Corpuscular Hemoglobin 28.5 PG Mean Corpuscular Hemoglobin 34.3 % Concent Red Cell Distribution Width 13.4 % Platelet Count 155 TH/MM3 Mean Platelet Volume 9.3 FL Neutrophils (%) (Auto) 54.8 % Lymphocytes (%) (Auto) 34.4 % Monocytes (%) (Auto) 6.6 % Eosinophils (%) (Auto) 3.2 % Basophils (%) (Auto) 1.0 % Neutrophils # (Auto) 2.4 TH/MM3 Lymphocytes # (Auto) 1.5 TH/MM3 Monocytes # (Auto) 0.3 TH/MM3 Eosinophils # (Auto) 0.1 TH/MM3 Basophils # (Auto) 0.0 TH/MM3 CBC Comment DIFF FINAL Differential Comment Prothrombin Time 10.7 SEC Prothromb Time International 1.0 RATIO Ratio Activated Partial 24.5 SEC Thromboplast Time Sodium Level 136 MEQ/L Potassium Level 3.8 MEQ/L Chloride Level 102 MEQ/L Carbon Dioxide Level 26.1 MEQ/L Anion Gap 8 MEQ/L Blood Urea Nitrogen 19 MG/DL Creatinine 0.74 MG/DL Estimat Glomerular Filtration 80 ML/MIN Rate Random Glucose 442 MG/DL Calcium Level 8.8 MG/DL Magnesium Level 1.5 MG/DL Total Creatine Kinase 132 U/L Creatine Kinase MB 5.0 NG/ML Troponin I LESS THAN 0.02 NG/ML MDM Medical Decision Making Medical Screen Exam Complete: Yes Emergency Medical Condition: Yes Medical Record Reviewed: Yes Differential Diagnosis chest pain, a fib, chronic dizziness, BPPV, Mnire's disease, Narrative Course 61-year-old female here with complaints of chronic dizziness and chest pain. Patient has been suffering with dizziness for quite some time. Today she is reporting chest pain. She does have newly diagnosed A. fib and this could contribute to her feelings of lightheadedness/dizziness. She's had quite an extensive workup with head imaging. I do not recommend further imaging or workup here in the emergency department. This is something that she could have followed on outpatient basis. IV access obtained, patient was placed on cardiac monitoring. Labs and imaging ordered 2011: glucose 442; insulin provided Last Impressions Chest X-Ray 04/13/17 1822 Signed Impressions: Service Date/Time: Sunday, April 13, 2017 18:54 - CONCLUSION: Minimal parenchymal changes left base. Alberto Hawk MD FACR Laboratory Tests Test 04/13/17 18:50 White Blood Count 4.4 TH/MM3 Red Blood Count 4.40 MIL/MM3 Hemoglobin 12.5 GM/DL Hematocrit 36.6 % Mean Corpuscular Volume 83.2 FL Mean Corpuscular Hemoglobin 28.5 PG Mean Corpuscular Hemoglobin 34.3 % Concent Red Cell Distribution Width 13.4 % Platelet Count 155 TH/MM3 Mean Platelet Volume 9.3 FL Neutrophils (%) (Auto) 54.8 % Lymphocytes (%) (Auto) 34.4 % Monocytes (%) (Auto) 6.6 % Eosinophils (%) (Auto) 3.2 % Basophils (%) (Auto) 1.0 % Neutrophils # (Auto) 2.4 TH/MM3 Lymphocytes # (Auto) 1.5 TH/MM3 Monocytes # (Auto) 0.3 TH/MM3 Eosinophils # (Auto) 0.1 TH/MM3 Basophils # (Auto) 0.0 TH/MM3 CBC Comment DIFF FINAL Differential Comment Prothrombin Time 10.7 SEC Prothromb Time International 1.0 RATIO Ratio Activated Partial 24.5 SEC Thromboplast Time Sodium Level 136 MEQ/L Potassium Level 3.8 MEQ/L Chloride Level 102 MEQ/L Carbon Dioxide Level 26.1 MEQ/L Anion Gap 8 MEQ/L Blood Urea Nitrogen 19 MG/DL Creatinine 0.74 MG/DL Estimat Glomerular Filtration 80 ML/MIN Rate Random Glucose 442 MG/DL Calcium Level 8.8 MG/DL Magnesium Level 1.5 MG/DL Total Creatine Kinase 132 U/L Creatine Kinase MB 5.0 NG/ML Troponin I LESS THAN 0.02 NG/ML Labs appreciated. Results have been discussed with the patient. I recommend overnight observation in the chest pain center. Patient is in agreement with this plan. Case has been discussed with Dr. Naik. I reiterated f/u with her PCP regarding dizziness. Patient verbalized understanding of instructions, questions were answered, and thanked me for their care. Diagnosis Primary Impression: Chest pain Qualified Code: R07.89 - Other chest pain Admitting Information Admitting Physician Requests: Admit Condition: Stable Namita Nye Apr 13, 2017 18:11
[2017-04-13] MEDS ORDERED: SODIUM CHLORIDE 0.9% FLUSH 10 ML FLUSH IVF PRN (18:30)
[2017-04-13 18:52] VITALS: O2SAT 99
[2017-04-13 19:15] LABS: AUTOMATED NEUTROPHIL # 2.4 TH/MM3 (1.8-7.7); EOSINOPHIL # 0.1 TH/MM3 (0-0.4); EOSINOPHIL % 3.2 % (0.0-4.0); HEMATOCRIT 36.6 % (35.0-46.0); HEMO FLAGS DIFF FINAL; LYMPH % 34.4 % (9.0-44.0); LYMPHOCYTE # 1.5 TH/MM3 (1.0-4.8); MEAN CELL VOLUME 83.2 FL (80.0-100.0); MEAN CORPUSCULAR HEMOGLOBIN 28.5 PG (27.0-34.0); MEAN CORPUSCULAR HGB CONC 34.3 % (32.0-36.0); MONO % 6.6 % (0.0-8.0); NEUT % 54.8 % (16.0-70.0); PLATELET COUNT 155 TH/MM3 (150-450); RED CELL DISTRIBUTION WIDTH 13.4 % (11.6-17.2); WHITE BLOOD COUNT 4.4 TH/MM3 (4.0-11.0)
--- NOTE | 2017-04-13 19:20 | RADRPT ---
EXAM DATE/TIME: 04/13/2017 18:54 [facility] COMPARISON: CHEST SINGLE AP, March 31, 2017, 20:15. INDICATIONS : Chest pain MEDICAL HISTORY : Diabetes mellitus type II. Stroke. Headaches. Dizziness. Memory loss, A fib, HTN, SURGICAL HISTORY : Tonsillectomy. Appendectomy. Cholecystectomy. Hysterectomy. ENCOUNTER: Initial ACUITY: 2 days PAIN SCORE: 6/10 LOCATION: Bilateral chest FINDINGS: There are minimal parenchymal changes left base. The right lung is clear.. The cardiomediastinal co ntours are unremarkable. Osseous structures are intact. CONCLUSION: Minimal parenchymal changes left base. Alberto Hawk MD FACR on April 13, 2017 at 19:17 Board Certified Radiologist. This report was verified electronically.
[2017-04-13 19:30] LABS: APTT (PATIENT) 24.5 SEC (24.3-30.1); PROTHROMBIN TIME - PATIENT 10.7 SEC (9.8-11.6)
[2017-04-13 20:11] LABS: ANION GAP 8 MEQ/L (5-15); BICARBONATE 26.1 MEQ/L (21.0-32.0); BLOOD UREA NITROGEN 19 MG/DL (7-18); CHLORIDE 102 MEQ/L (98-107); GLOMERULAR FILTRATION RATE 80 ML/MIN (>89); MAGNESIUM 1.5 MG/DL (1.5-2.5); POTASSIUM 3.8 MEQ/L (3.5-5.1); SODIUM (NA) 136 MEQ/L (136-145)
[2017-04-13 20:17] LABS: CREATINE KINASE 132 U/L (26-192)
[2017-04-13] MEDS ORDERED: SODIUM CHLOR 0.9% 1000 ML INJ 1,000 ML IV ONE (20:30)
[2017-04-13] MEDS ORDERED: INSULIN HUMAN REGULAR 1,000 UNITS/10 ML VIAL SQ ONE (20:30)
[2017-04-13] MEDS ORDERED: SODIUM CHLORIDE 0.9% FLUSH 10 ML FLUSH IV FLUSH PRN (21:15)
[2017-04-13 23:00] LABS: CREATINE KINASE 116 U/L (26-192)
[2017-04-14] VITALS (11 sets, daily range): BP systolic 150–186; BP diastolic 69–89; PULSE 60–76; RESP 18–19; TEMP 97.5–98.2; O2SAT 94–98
[2017-04-14 01:06] LABS: CREATINE KINASE 120 U/L (26-192)
[2017-04-14 01:18] LABS: CKMB 4.3 NG/ML (0.5-3.6)
[2017-04-14] MEDS ORDERED: DEXTROSE 50% IN WATER 50 ML VIAL(D50) IV PRN (07:45)
[2017-04-14] MEDS ORDERED: GLUCAGON 1 MG/ML VIAL IM/SQ PRN (07:45)
[2017-04-14] MEDS ORDERED: LEVEMIR SQ (08:10)
[2017-04-14] MEDS ORDERED: APIX5TAB (08:10)
[2017-04-14] MEDS ORDERED: DILT-64 PO (08:10)
[2017-04-14] MEDS ORDERED: CITA20TA4 PO (08:14)
[2017-04-14] MEDS ORDERED: LISINOPRIL 10 MG TAB PO SCH (09:00)
[2017-04-14] MEDS ORDERED: DILTIAZEM-CD 240 MG CAP ER PO SCH (09:00)
[2017-04-14] MEDS ORDERED: SODIUM CHLORIDE 0.9% FLUSH 10 ML FLUSH IV FLUSH SCH (09:00)
[2017-04-14] MEDS ORDERED: ATORVASTATIN 40 MG TAB PO SCH (09:00)
--- NOTE | 2017-04-14 09:18 | EKG ---
Date Performed: 04/14/2017 Time Performed: 00:48:27 PTAGE: 61 years EKG: Sinus rhythm POSSIBLE LEFT ATRIAL ENLARGEMENT INFERIOR MYOCARDIAL INFARCTION ANTEROSEPTAL MYOCARDIAL INFARCTION A BNORMAL ECG NO SIG CHANGE PREVIOUS TRACING : 03/02/2017 06.20 DOCTOR: Rafiq Choudhury Interpretating Date/Time 04/14/2017 09:17:19
--- NOTE | 2017-04-14 09:29 | EKG ---
Date Performed: 04/13/2017 Time Performed: 22:03:28 PTAGE: 61 years EKG: SINUS BRADYCARDIA POSSIBLE LEFT ATRIAL ENLARGEMENT POSSIBLE ANTERIOR WALL INJURY AGE UNDETE RMINED POSSIBLE INFERIOR WALL INJURY AGE UNDETERMINED PREVIOUS TRACING : 04/13/2017 18.42 DOCTOR: Rafiq Choudhury Interpretating Date/Time 04/14/2017 09:28:50
--- NOTE | 2017-04-14 09:32 | EKG ---
Date Performed: 04/13/2017 Time Performed: 18:42:01 PTAGE: 61 years EKG: Sinus rhythm POSSIBLE LEFT ATRIAL ENLARGEMENT LOW QRS VOLTAGE IN PRECORDIAL LEADS ANTEROSEPTAL MYOCARDIAL INFARCT ION POSSIBLE INFERIOR MN AGE UNDETERMINED NO SIG CHANGE PREVIOUS TRACING : 03/31/2017 19.26 DOCTOR: Rafiq Choudhury Interpretating Date/Time 04/14/2017 09:31:42
[2017-04-14] MEDS ORDERED: SODIUM CHLOR 0.9% 1000 ML INJ 1,000 ML IV SCH (10:16)
--- NOTE | 2017-04-14 10:45 | HHI.HP ---
[facility] Primary Care Physician Gloria Bolanos MD Chief Complaint Chest pain History of Present Illness This is a 61-year-old female that presents to ED with primary complaint of dizziness. She has had a workup with her primary care physician Dr. 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 Patient describes her dizziness as feeling as if she could fall backwards. She's had no loss of consciousness. Denies headache. Denies numbness tingling weakness in extremities. Patient also complains of a chest discomfort that she states is in the left and right side. It began while she was sitting at home yesterday. It lasted 5 minutes. She had no associated shortness breath nausea or diaphoresis. In those 5 minutes of the discomfort she found nothing to worsen or improve the symptoms. She believes she had a chemical stress test about for 5 years ago and that it was okay. Denies recent illness. Denies fevers or chills. Review of Systems General: Patient denies fevers, chills recent, and recent travel HEENT: Patient denies headache, sore throat, difficulty swallowing. Cardiovascular: Has the chest discomfort as mentioned above. Denies sensation of heart beating rapidly or irregularly. No syncope. Denies diaphoresis. Respiratory: Denies shortness of breath or inspirational chest discomfort. Denies coughing wheezing or hemoptysis. GI: Patient denies nausea, vomiting, diarrhea, abdominal pain, bloody stools. Musculoskeletal: Patient denies joint pain or edema. Denies calf pain or edema. Neurovascular: Complains of feeling dizzy and describes it as feeling as if she were to fall backwards. Patient denies numbness, tingling, weakness in extremities. Denies headache. Endocrine: Denies polyuria and polydipsia. Hematologic: Denies easy bruising. Skin: Denies rash or itching. Past Family Social History Allergies: Coded Allergies: Codeine (Verified Adverse Reaction, Severe, Nausea/Vomiting, 04/13/17) Past Medical History She was diagnosed with new-onset atrial fibrillation with rapid ventricular response couple weeks ago and placed on Effient. Atenolol was discontinued and she was placed on Cardizem. She states she has been compliant with the medication regimen. She has not noticed a return of that irregular heartbeat. She also is diabetic, history of hypertension, hyperlipidemia. Denies known coronary artery disease. Past Surgical History Hysterectomy, cholecystectomy, ectopic , appendectomy, cervical fusion , and tonsillectomy. Reported Medications Reported Meds & Active Scripts Active Novolog Inj (Insulin Aspart) 100 Unit/Ml Inj 1 Injection SQ ACHS SLIDING SCALE 30 Days Levemir Inj (Insulin Detemir) 1,000 unit/ 10 ML Vial 55 Units SQ BID 30 Days Patient will take 60 units in the AM 55 units in the PM Cardizem CD 24 HR (Diltiazem CD 24 HR) 240 Mg Caper 240 Mg PO DAILY Alcohol Prep Pads (Alcohol Swabs) 70 % Pad 1 Pad .ROUTE DIRECTED Lisinopril 30 Mg Tab 30 Mg PO DAILY Metformin (Metformin HCl) 500 Mg Tab 1,000 Mg PO BIDPC With meals Glipizide 10 Mg Tab 10 Mg PO BIDAC Take 30 minutes before a meal Omeprazole 20 Mg Tab 40 Mg PO BID Citalopram (Citalopram Hydrobromide) 20 Mg Tab 20 Mg PO DAILY Atorvastatin (Atorvastatin Calcium) 40 Mg Tab 40 Mg PO DAILY Reported Citalopram (Citalopram Hydrobromide) 20 Mg Tab 20 Mg PO DAILY Levemir Inj (Insulin Detemir) 1,000 unit/ 10 ML Vial 10 Units SQ HS Do not mix with any other Insulin. Diltiazem CD 24 HR 240 Mg Caper 240 Mg PO DAILY Eliquis (Apixaban) 5 Mg Tab 5 Mg .ROUTE BID Gabapentin 400 Mg Cap 400 Cap PO BID Aspir-81 (Aspirin) 81 Mg Tabdr 81 Mg PO DAILY Ginny-Colace (Sennosides-Docusate Sodium) 8.6-50 Mg Tab 1 Tab PO DAILY Active Ordered Medications Current Medications Medications (Trade) Dose Ordered Sig/Be Route Start Time Stop Time Status Last Admin (NS Flush) 2 ml UNSCH PRN IVF 04/13/17 18:30 (NS Flush) 2 ml BID IV FLUSH 04/14/17 09:00 04/14/17 08:24 (Cardizem Cd) 240 mg DAILY PO 04/14/17 09:00 04/14/17 08:24 (Prinivil) 30 mg DAILY PO 04/14/17 09:00 04/14/17 08:24 (Lipitor) 40 mg DAILY PO 04/14/17 09:00 04/14/17 08:24 (D50w (Vial) Inj) 25 ml UNSCH PRN IV 04/14/17 07:45 Glucagon 1 mg 1 mg UNSCH PRN IM/SQ 04/14/17 07:45 (NS 1000 ml Inj) 1,000 ml @ 100 mls/hr Q10H IV 04/14/17 10:16 04/14/17 20:15 Family History She states her mother had a bypass in her early 80s. Social History Patient is a lifetime nonsmoker. Denies alcohol or illicit drugs. She is for 45 years. She is unemployed. Physical Exam Vital Signs Vital Signs Date Time Temp Pulse Resp B/P Pulse Ox O2 Delivery O2 Flow Rate FiO2 04/14/17 09:37 177/84 04/14/17 08:05 72 186/79 171/83 04/14/17 07:47 66 04/14/17 07:34 97.7 65 19 183/89 97 04/14/17 06:13 94 21 04/14/17 05:01 73 177/85 04/14/17 04:16 98.2 73 18 183/89 94 04/14/17 04:08 74 04/14/17 01:05 73 04/14/17 00:37 98.2 76 18 162/82 98 04/13/17 22:10 97 Room Air 04/13/17 18:52 99 04/13/17 18:05 16 Room Air 04/13/17 17:40 98.2 72 20 166/79 97 Room Air Physical Exam GENERAL: This is a well-nourished, well-developed patient, in no apparent distress. Patient speaks in clear complete sentences. Patient is pleasant. HEENT: Head is atraumatic and normocephalic. Neck is supple without lymphadenopathy and trachea is midline. No JVD or carotid bruits. CARDIOVASCULAR: Regular rate and rhythm without murmurs, gallops, or rubs. RESPIRATORY: Clear to auscultation. Breath sounds equal bilaterally. No wheezes , rales, or rhonchi. Chest wall is nontender. No use of accessory muscles. GASTROINTESTINAL: Abdomen is nontender, nondistended. Abdomen soft. No obvious pulsatile mass or bruit. No CVA tenderness. Strong femoral pulses bilaterally. Normal bowel sounds in all quadrants. MUSCULOSKELETAL: Patient is moving upper and lower extremities freely. No calf tenderness or edema, no Homans sign. Strong pulses in upper and lower extremities. NEUROLOGICAL: Patient is alert and oriented. Cranial nerves 2-12 are grossly intact. No focal deficits and speech is clear. SKIN: No rash and turgor is normal. Laboratory Laboratory Tests Test 04/13/17 04/13/17 04/14/17 18:50 22:05 00:25 White Blood Count 4.4 Red Blood Count 4.40 Hemoglobin 12.5 Hematocrit 36.6 Mean Corpuscular Volume 83.2 Mean Corpuscular Hemoglobin 28.5 Mean Corpuscular Hemoglobin 34.3 Concent Red Cell Distribution Width 13.4 Platelet Count 155 Mean Platelet Volume 9.3 Neutrophils (%) (Auto) 54.8 Lymphocytes (%) (Auto) 34.4 Monocytes (%) (Auto) 6.6 Eosinophils (%) (Auto) 3.2 Basophils (%) (Auto) 1.0 Neutrophils # (Auto) 2.4 Lymphocytes # (Auto) 1.5 Monocytes # (Auto) 0.3 Eosinophils # (Auto) 0.1 Basophils # (Auto) 0.0 CBC Comment DIFF FINAL Differential Comment Prothrombin Time 10.7 Prothromb Time International 1.0 Ratio Activated Partial 24.5 Thromboplast Time Sodium Level 136 Potassium Level 3.8 Chloride Level 102 Carbon Dioxide Level 26.1 Anion Gap 8 Blood Urea Nitrogen 19 Creatinine 0.74 Estimat Glomerular Filtration 80 Rate Random Glucose 442 Calcium Level 8.8 Magnesium Level 1.5 Total Creatine Kinase 132 116 120 Creatine Kinase MB 5.0 4.0 4.3 Troponin I LESS THAN 0.02 LESS THAN 0.02 LESS THAN 0.02 Result Diagram: 04/13/17184904/13/17 185 Imaging Last 24 hours Impressions Chest X-Ray 04/13/17 182 Signed Impressions: Service Date/Time: Thursday, April 13, 2017 18:54 - CONCLUSION: Minimal parenchymal changes left base. Alberto Hawk MD FACR Course EKGs have been sinus rhythm sinus bradycardia without significant ST segment depressions or elevations. Assessment and Plan Assessment and Plan * Chest pain: Patient has had serial cardiac enzymes and EKGs for ruling out purposes. Her symptoms are very atypical. She has been seen by Dr. Choudhury of cardiology and the chest pain center. We will proceed with Lexiscan and if that is nonischemic she'll be discharged home with instructions to follow-up with her primary care physician. * Dizziness: Continue follow-up with her primary care physician. * Diabetes: Patient's blood sugars have not been under the best control. She was advised the following a proper diabetic diet and having close follow-up with her physician to get her blood sugars controlled. * Hyperlipidemia: Continue current medication. * History of A. fib: Patient episode of A. fib up a couple weeks ago. She should continue the Effient and Cardizem. * Hypertension: Continue current medication. Patient is stable at this time. She is agreeable to this plan. Jose Flowers Apr 14, 2017 10:45
[2017-04-14] MEDS ORDERED: INSULIN ASPART SUPPLEMENTAL SCALE SQ SCH (11:00)
[2017-04-14] MEDS ORDERED: REGADENOSON INJ 0.4 MG/5 ML SYR ONE (11:46)
--- NOTE | 2017-04-14 12:28 | TR ---
Date Performed: 04/14/2017 Time Performed: 11:49:23 DOCTOR: Rafiq Choudhury DRUG LIST: CLINICAL HISTORY: ANGINA REASON FOR TEST: Angina REASON FOR ENDING: OBSERVATION: CONCLUSION: /ETTPatient exercised using the Luis Enrique protocol. No electrocardiographic changes were seen to suggest ischemia. Hemodynamic response to exercise was normal. No significant arrhythmia was present. COMMENTS: NEGATIVE STUDY
--- NOTE | 2017-04-14 13:23 | RADRPT ---
EXAM DATE/TIME: 04/14/2017 11:07 [facility] COMPARISON: No previous studies available for comparison. INDICATIONS : Mid chest pain with dizziness for two weeks. Angina. Atrial fibrillation. DOSE: 26.4 mCi Tc99m Myoview at stress. 8.6 mCi Tc99m Myoview at rest. 0.4 mg Lexiscan STRESS SYMPTOMS: Shortness of breath and flush. EJECTION FRACTION: > 70% MEDICAL HISTORY : Diabetes mellitus type 2. Hypertension. SURGICAL HISTORY : Hysterectomy. ENCOUNTER: Initial ACUITY: 2 weeks PAIN SCALE: 3/10 LOCATION: Midsternal chest TECHNIQUE: The patient underwent pharmacologic stress with infusion of prescribed dose. Continuous ECG tracing was monitored during stress. Gated SPECT imaging was performed after stress and conventional SPECT i maging was performed at rest. The examination was performed on a SPECT/CT scanner, both attenuation and non-corrected datasets were reviewed. FINDINGS: DISTRIBUTION: The maximum perfused segment at stress is in the <mid septal> wall. PERFUSION STUDY: The pattern of perfusion at stress is within normal limits. GATED STUDY: There is intact wall motion and thickening without hypokinetic or dyskinetic segments. CONCLUSION: Normal examination. RISK CATEGORY: <low,1 >> Gomez Bradley MD on April 14, 2017 at 13:21 Board Certified Radiologist. This report was verified electronically.
--- NOTE | 2017-04-14 13:33 | HHI.DCPOC ---
Discharge Care Plan Goals to Promote Your Health * To prevent worsening of your condition and complications * To maintain your health at the optimal level Directions to Meet Your Goals Take your medications as prescribed Follow your dietary instruction Follow activity as directed Keep your appointments as scheduled Take your immunizations and boosters as scheduled If your symptoms worsen call your PCP, if no PCP go to Urgent Care Center or Emergency Room Smoking is Dangerous to Your Health. Avoid second hand smoke Call the 24-hour hour crisis hotline for domestic abuse at Jose Flowers Apr 14, 2017 13:33
== END 2017-04-14 14:48 | disposition home or self-care (01) ==
LOC: NEPE 17:38 → NEDA 21:12 → NEPFCDU 23:57
PROVIDERS: ADMIT Internal Medicine Interventional Cardiology; ATTEND Internal Medicine Interventional Cardiology
DX: R07.89 Other chest pain (principal); R42 Dizziness and giddiness; R51 Headache; R11.0 Nausea; R06.02 Shortness of breath; I20.9 Angina pectoris, unspecified; R94.31 Abnormal electrocardiogram [ECG] [EKG]; R00.1 Bradycardia, unspecified; I48.91 Unspecified atrial fibrillation; I10 Essential (primary) hypertension; E78.5 Hyperlipidemia, unspecified; E78.00 Pure hypercholesterolemia, unspecified; E11.9 Type 2 diabetes mellitus without complications; M19.90 Unspecified osteoarthritis, unspecified site; Z98.1 Arthrodesis status; Z79.01 Long term (current) use of anticoagulants; Z79.899 Other long term (current) drug therapy; Z79.82 Long term (current) use of aspirin; Z79.4 Long term (current) use of insulin; Z86.73 Personal history of transient ischemic attack (TIA), and cerebral infarction without residual deficits
CPT/HCPCS: 71010; 78452; 80048; 82550; 82552; 82948; 83735; 84484; 85025; 85610; 85730; 93005; 93017; 96372; 99285; A9502; G0378; J1815; J2785; J7030

== ENCOUNTER → 2017-07-03 | Outpatient (CLI) | payer OTHER ==
[~2017-07-03] MED LIST changes: +APIX5TAB; -BLOOD GLUCOSE M1 KIT; -BLOOD GLUCOSE T1 TES; +HYDR-3533 PO; -INSU1MIS; -LANC30MI; +MECL-62 PO; -NOVORP2 SQ; +SPIR25TA PO
[2017-07-03 09:06] LABS: HDL CHOLESTEROL 43.1 MG/DL (40.0-60.0); LDL CHOLESTEROL 89 MG/DL (0-99)
[2017-07-03 11:13] LABS: HEMOGLOBIN A1a 1.4 %; HEMOGLOBIN Ao 74.4 %; HEMOGLOBIN F 2.6 %; HEMOGLOBIN LA1C 4.1 %
== END ==
LOC: CLAB 08:20
PROVIDERS: ATTEND Nurse Practitioner Family
DX: E11.9 Type 2 diabetes mellitus without complications (principal)
CPT/HCPCS: 36415; 80061; 83036

== ENCOUNTER 2017-07-31 21:05 | Emergency (ER) | payer OTHER ==
[~2017-07-31] VITALS: Ht 160 cm; Wt 72.0 kg
[~2017-07-31 21:05] MED LIST changes: -APIX5TAB; -HYDR-3533 PO; -OMEP20TA PO; +OMEP20TA93 PO
[2017-07-31 21:09] VITALS: BP 208/85; PULSE 108; RESP 16; TEMP 98.2; O2SAT 98
[2017-07-31] MEDS ORDERED: ACETAMINOPHEN/HYDROcodone 325 MG/5 MG TAB PO ONE (22:30)
--- NOTE | 2017-07-31 22:50 | PD ---
HPI Chief Complaint: Injury Time Seen by Provider: 22:28 Travel History International Travel<30 days: No Contact w/Intl Traveler<30days: No Traveled to known affect area: No History of Present Illness HPI 61-year-old white female presents to the department complaints of left foot pain after a fall at work today. She states that earlier this evening she was walking back from break when she stumbled on a step. She fell down onto her left side bent her left leg up underneath her. She states that she had immediate pain in her left foot. She denies hitting her head. No neck or back pain. No numbness, tingling or weakness. Pain is moderate. Worse with weightbearing. Relief with elevation. 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 PFSH Past Medical History Narrative Medical Anxiety, diabetes, A. fib, hypertension Atrial Fibrillation: Yes Anxiety: Yes Cardiovascular Problems: Yes (HTN, AFIB) High Cholesterol: Yes Diabetes: Yes (metformin) Patient Takes Glucophage: Yes Diminished Hearing: No Hypertension: Yes Immunizations Current: Yes Tetanus Vaccination: < 5 Years Past Surgical History Appendectomy: Yes Cholecystectomy: Yes Gynecologic Surgery: Yes Hysterectomy: Yes Tonsillectomy: Yes Social History Alcohol Use: No Tobacco Use: No Substance Use: No Allergies-Medications (Allergen,Severity, Reaction): Coded Allergies: codeine (Unverified Adverse Reaction, Severe, Nausea/Vomiting, 07/31/17) Reported Meds & Prescriptions Reported Meds & Active Scripts Active Lortab (Hydrocodone-Acetaminophen) 5-325 Mg Tab 1 Tab PO Q6H PRN Atorvastatin (Atorvastatin Calcium) 40 Mg Tab 40 Mg PO DAILY Lisinopril 30 Mg Tab 30 Mg PO DAILY Gabapentin 400 Mg Cap 400 Cap PO BID Citalopram (Citalopram Hydrobromide) 20 Mg Tab 20 Mg PO DAILY Meclizine (Meclizine HCl) 25 Mg Tab 25 Mg PO DIRECTED PRN Spironolactone 25 Mg Tab 25 Mg PO DAILY Eliquis (Apixaban) 5 Mg Tab 5 Mg PO BID Novolog Inj (Insulin Aspart) 100 Unit/Ml Inj 1 Injection SQ ACHS SLIDING SCALE 30 Days Levemir Inj (Insulin Detemir) 1,000 unit/ 10 ML Vial 55 Units SQ BID 30 Days Patient will take 60 units in the AM 55 units in the PM Cardizem CD 24 HR (Diltiazem CD 24 HR) 240 Mg Caper 240 Mg PO DAILY Metformin (Metformin HCl) 500 Mg Tab 1,000 Mg PO BIDPC With meals Glipizide 10 Mg Tab 10 Mg PO BIDAC Take 30 minutes before a meal Omeprazole 20 Mg Tab 40 Mg PO BID Alcohol Prep Pads (Alcohol Swabs) 70 % Pad 1 Pad .ROUTE DIRECTED Reported Aspir-81 (Aspirin) 81 Mg Tabdr 81 Mg PO DAILY Ginny-Colace (Sennosides-Docusate Sodium) 8.6-50 Mg Tab 1 Tab PO DAILY Review of Systems General / Constitutional: No: Fever Eyes: No: Visual changes HENT: No: Headaches, Neck Stiffness, Neck Pain Cardiovascular: No: Chest Pain or Discomfort Respiratory: No: Shortness of Breath Gastrointestinal: No: Abdominal Pain Genitourinary: No: Dysuria Musculoskeletal: Positive: Arthralgias, Limited ROM, Edema, Pain, No: Weakness Skin: Positive Rash (abrasion left elbow) Neurologic: No: Weakness Psychiatric: No: Depression Endocrine: No: Polydipsia Hematologic/Lymphatic: No: Easy Bruising Physical Exam Narrative GENERAL: Well-developed, well-nourished in no apparent distress. Nontoxic appearing. HEAD: Normocephalic, atraumatic. EYES: Pupils equal round and reactive. Extraocular motions intact. No scleral icterus. No injection or drainage. ENT: Nose clear. Throat without erythema, tonsillar hypertrophy or exudate. Uvula midline. Airway patent. NECK: Trachea midline. Supple, nontender, moves head freely. No central bony tenderness or spasm. CARDIOVASCULAR: Regular rate and rhythm without murmurs, gallops, or rubs. RESPIRATORY: Clear to auscultation. Breath sounds equal bilaterally. No wheezes , rales, or rhonchi. GASTROINTESTINAL: Abdomen soft, non-tender, nondistended. No hepato-splenomegaly , or palpable masses. No guarding. EXTREMITIES: No clubbing, cyanosis, examination of the left lower extremity reveals pain to the lateral proximal forefoot. No pain medially. No pain in the distal forefoot or toes. She has intact sensation with good distal pulses. The skin is intact. There is no pain over the medial lateral malleolus. No pain in the knee or hip. The right lower extremity as well as upper extremities are without localizing bony tenderness or deformity. She has an abrasion on the proximal left forearm. Superficial in nature. BACK: Nontender without deformity. No flank tenderness. NEUROLOGICAL: Awake, alert and oriented x 3 .Cranial nerves grossly intact. Motor and sensory grossly within normal limits. Normal speech. Data Data Last Documented VS Vital Signs Date Time Temp Pulse Resp B/P (MAP) Pulse Ox O2 Delivery O2 Flow Rate FiO2 07/31/17 21:09 98.2 108 16 208/85 (126) 98 Orders Orders Foot, Complete ([id number]) (07/31/17 22:28) Ice/Cold Pack (07/31/17 22:28) Acetamin-Hydrocod 325-5 Mg ([place] 5-325 (07/31/17 22:30) Splint Or Brace Apply/Monitor (07/31/17 23:00) Crutches (07/31/17 23:00) Ed Discharge Order (07/31/17 23:02) MDM Medical Decision Making Medical Screen Exam Complete: Yes Emergency Medical Condition: Yes Medical Record Reviewed: Yes Interpretation(s) Last 24 hours Impressions Foot X-Ray 07/31/172227 Signed Impressions: Service Date/Time: Monday, July 31, 2017 23:34 - CONCLUSION: Questionable hairline fracture fifth proximal metatarsal bone. Kianna Anthony MD Differential Diagnosis MDM: High Differential diagnoses: Fracture, sprain, strain, dislocation, contusion, neurovascular injury Narrative Course X-ray of the left foot reveals a fracture the fifth metatarsal. The patient is placed in a cam walker and given crutches. Lortab 5 a grams by mouth for pain. This is left fifth metatarsal fracture Diagnosis Primary Impression: left fifth metatarsal fracture Patient Instructions: General Instructions, Narcotic given in the ED Departure Forms: Tests/Procedures, Work Release Special Instructions: Sedentary work until released by podiatry Additional Instructions: Rest. Elevation. Ice packs for the next 3 days. Cam Walker and crutches. No weight-bearing.. Medications as directed Follow-up with rv servicer within 1 week.. Return to the ER if any problems Med/Other Pt SpecificInfo: Prescription(s) given, Orthopedic Instructions Scripts Hydrocodone-Acetaminophen (Lortab) 5-325 Mg Tab 1 TAB PO Q6H Y for PAIN, #20 TAB 0 Refills Prov: Guerrier,Serene L DO 07/31/17 Disposition: 01 DISCHARGE HOME Condition: Stable Hussain Miller Jul 31, 2017 22:50
--- NOTE | 2017-07-31 22:56 | RADRPT ---
EXAM DATE/TIME: 07/31/2017 23:34 [facility] COMPARISON: No previous studies available for comparison. INDICATIONS : Left lateral foot pain post fall. MEDICAL HISTORY : Diabetes mellitus type 2. Hypertension SURGICAL HISTORY : Hysterectomy. ENCOUNTER: Initial ACUITY: 1 day PAIN SCORE: 7/10 LOCATION: Left foot FINDINGS: There is a questionable hairline fracture of the fifth proximal metatarsal bone. CONCLUSION: Questionable hairline fracture fifth proximal metatarsal bone. Kianna Anthony MD on July 31, 2017 at 22:53 Board Certified Radiologist. This report was verified electronically.
[2017-07-31] MEDS ORDERED: HYDR-3533 PO (23:01)
== END 2017-08-01 00:04 | disposition home or self-care (01) ==
LOC: NEPK 21:05
DX: S92.352A Displaced fracture of fifth metatarsal bone, left foot, initial encounter for closed fracture (principal); W10.9XXA Fall (on) (from) unspecified stairs and steps, initial encounter; Y93.01 Activity, walking, marching and hiking; Y99.0 Civilian activity done for income or pay; I10 Essential (primary) hypertension; E11.9 Type 2 diabetes mellitus without complications; F41.9 Anxiety disorder, unspecified; Z79.84 Long term (current) use of oral hypoglycemic drugs
CPT/HCPCS: 73630; 99283; E0113; L2114

== ENCOUNTER 2017-08-15 21:26 | Observation (INO) | payer OTHER ==
[~2017-08-15] VITALS: Ht 160 cm; Wt 72.6 kg
[~2017-08-15 21:26] MED LIST changes: +HYDR-3533 PO
[2017-08-15 21:32] VITALS: BP 179/97; PULSE 120; RESP 22; TEMP 98.3; O2SAT 99
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
--- NOTE | 2017-08-15 22:33 | RADRPT ---
EXAM DATE/TIME: 08/15/2017 22:11 [facility] COMPARISON: CT BRAIN W/O CONTRAST, March 29, 2017, 13:21. INDICATIONS : Dizziness. RADIATION DOSE: 34.67 CTDIvol (mGy) MEDICAL HISTORY : Hypertension. Diabetes. SURGICAL HISTORY : Hysterectomy. Appendectomy.Tubal ligation.Cholecystectomy. ENCOUNTER: Initial ACUITY: 1 day PAIN SCALE: 0/10 LOCATION: cranial TECHNIQUE: Multiple contiguous axial images were obtained of the head. Using automated exposure control and adj ustment of the mA and/or kV according to patient size, radiation dose was kept as low as reasonably a chievable to obtain optimal diagnostic quality images. DICOM format image data is available electro nically for review and comparison. FINDINGS: CEREBRUM: The ventricles are normal for age. No evidence of midline shift, mass lesion, hemorrhage or acute in farction. No extra-axial fluid collections are seen. POSTERIOR FOSSA: The cerebellum and brainstem are intact. The 4th ventricle is midline. The cerebellopontine angle i s unremarkable. EXTRACRANIAL: The visualized portion of the orbits is intact. SKULL: The calvaria is intact. No evidence of skull fracture. CONCLUSION: No acute disease. Prakash Jiménez Jr., MD on August 15, 2017 at 22:31 Board Certified Radiologist. This report was verified electronically.
--- NOTE | 2017-08-15 22:40 | RADRPT ---
EXAM DATE/TIME: 08/15/2017 22:25 [facility] COMPARISON: CHEST SINGLE AP, April 13, 2017, 18:54. INDICATIONS : Short of breath after syncopal episode. MEDICAL HISTORY : Hypertension. Diabetes mellitus type II. Stroke. Headaches. Dizziness. A-fib. SURGICAL HISTORY : Tonsillectomy. Appendectomy. Cholecystectomy. Hysterectomy. ENCOUNTER: Initial ACUITY: 1 day PAIN SCORE: 0/10 LOCATION: Bilateral chest FINDINGS: A single view of the chest demonstrates the lungs to be symmetrically aerated without evidence of mas s, infiltrate or effusion. Calcified granulomas within the right upper lobe are unchanged. The cardi omediastinal contours are unremarkable. Osseous structures are intact. CONCLUSION: No acute disease. Prakash Jiménez Jr., MD on August 15, 2017 at 22:38 Board Certified Radiologist. This report was verified electronically.
[2017-08-15 22:50] VITALS: O2SAT 97
--- NOTE | 2017-08-15 22:50 | PD ---
Physical Exam Date Seen by Provider: Aug 15, 2017 Narrative GENERAL: SKIN: Warm and dry. HEAD: Atraumatic. Normocephalic. EYES: Pupils equal and round. No scleral icterus. No injection or drainage. ENT: No nasal bleeding or discharge. Mucous membranes pink and moist. NECK: Trachea midline. No JVD. CARDIOVASCULAR: Regular rate and rhythm. RESPIRATORY: No accessory muscle use. Clear to auscultation. Breath sounds equal bilaterally. GASTROINTESTINAL: Abdomen soft, non-tender, nondistended. MUSCULOSKELETAL: Extremities without clubbing, cyanosis, or edema. No obvious deformities. NEUROLOGICAL: Awake and alert. No obvious cranial nerve deficits. Motor grossly within normal limits. Five out of 5 muscle strength in the arms and legs. Normal speech. PSYCHIATRIC: Appropriate mood and affect; insight and judgment normal. Data Data Last Documented VS Vital Signs Date Time Temp Pulse Resp B/P (MAP) Pulse Ox O2 Delivery O2 Flow Rate FiO2 08/15/17 21:32 98.3 120 22 179/97 (124) 99 Orders Orders Electrocardiogram (08/15/17 22:03) Complete Blood Count With Diff (08/15/17 22:03) Comprehensive Metabolic Panel (08/15/17 22:03) Ckmb (Isoenzyme) Profile (08/15/17 22:03) Troponin I (08/15/17 22:03) Prothrombin Time / Inr (Pt) (08/15/17 22:03) Act Partial Throm Time (Ptt) (08/15/17 22:03) Lipase (08/15/17 22:03) Urinalysis - C+S If Indicated (08/15/17 22:03) Magnesium (Mg) (08/15/17 22:03) Thyroid Stimulating Hormone (08/15/17 22:03) Chest, Single Ap (08/15/17 22:03) Ct Brain W/O Iv Contrast(Rout) (08/15/17 22:03) Iv Access Insert/Monitor (08/15/17 22:03) Ecg Monitoring (08/15/17 22:03) Oximetry (08/15/17 22:03) [facility] Medical Record Reviewed: Yes Supervised Visit with LACEY: Yes Narrative Course CT HEAD NEG FOR ICH, CXR NEG FOR PNA/PTX...CURRENTLY LABS AWAITING RESULTS Diagnosis Primary Impression: Juan J Reilly MD Aug 15, 2017 22:50
[2017-08-15 23:03] LABS: AUTOMATED NEUTROPHIL # 1.9 TH/MM3 (1.8-7.7); EOSINOPHIL # 0.1 TH/MM3 (0-0.4); EOSINOPHIL % 2.6 % (0.0-4.0); HEMATOCRIT 37.6 % (35.0-46.0); LYMPH % 33.5 % (9.0-44.0); LYMPHOCYTE # 1.2 TH/MM3 (1.0-4.8); MEAN CELL VOLUME 82.8 FL (80.0-100.0); MEAN CORPUSCULAR HEMOGLOBIN 28.4 PG (27.0-34.0); MEAN CORPUSCULAR HGB CONC 34.3 % (32.0-36.0); MONO % 7.7 % (0.0-8.0); NEUT % 55.2 % (16.0-70.0); PLATELET COUNT 136 TH/MM3 (150-450); RED BLOOD COUNT 4.54 MIL/MM3 (4.00-5.30); RED CELL DISTRIBUTION WIDTH 14.2 % (11.6-17.2); WHITE BLOOD COUNT 3.5 TH/MM3 (4.0-11.0)
[2017-08-15 23:08] LABS: HEMO FLAGS AUTO DIFF
[2017-08-15 23:14] LABS: APTT (PATIENT) 22.9 SEC (24.3-30.1); PROTHROMBIN TIME - PATIENT 10.7 SEC (9.8-11.6)
[2017-08-15 23:32] LABS: ALT (GPT) 30 U/L (10-53); ANION GAP 11 MEQ/L (5-15); AST (GOT) 17 U/L (15-37); BICARBONATE 26.3 MEQ/L (21.0-32.0); BLOOD UREA NITROGEN 11 MG/DL (7-18); CHLORIDE 101 MEQ/L (98-107); GLOMERULAR FILTRATION RATE 89 ML/MIN (>89); MAGNESIUM 1.5 MG/DL (1.5-2.5); POTASSIUM 3.4 MEQ/L (3.5-5.1); SODIUM (NA) 138 MEQ/L (136-145)
[2017-08-15 23:42] LABS: ALKALINE PHOSPHATASE 141 U/L (45-117); TOTAL BILIRUBIN ADULT 0.5 MG/DL (0.2-1.0)
[2017-08-15 23:51] LABS: CREATINE KINASE 86 U/L (26-192)
[2017-08-16] VITALS (19 sets, daily range): BP systolic 141–187; BP diastolic 83–101; PULSE 58–89; RESP 16–20; TEMP 96.8–98.3; O2SAT 95–99
[2017-08-16 00:11] LABS: PLATELET ESTIMATE SMEAR LOW (NORMAL); PLATELET MORPHOLOGY NORMAL (NORMAL); SCAN/DIFF AUTO DIFF CONFIRMED
[2017-08-16 00:55] LABS: BLOOD, URINE NEG (NEG); GLUCOSE,URINE 1000 mg/dL (NEG); KETONE, URINE 40 mg/dL (NEG); MUCUS URINE FEW /lpf (OCC); NITRITE,URINE NEG (NEG); SQUAMOUS EPITHELIAL CELL URINE 2 /hpf (0-5); URINE COLOR LIGHT-YELLOW (YELLW/STRAW)
[2017-08-16 00:56] LABS: COMMENT (UR) CULT NOT INDICATED; CULTURE IF INDICATED CULT NOT INDICATED
[2017-08-16] MEDS ORDERED: NALOXONE HCL 0.4 MG/ML AMP IV PUSH PRN (01:15)
[2017-08-16] MEDS ORDERED: SODIUM CHLORIDE 0.9% FLUSH 10 ML FLUSH IV FLUSH PRN (01:15)
--- NOTE | 2017-08-16 04:57 | HHI.HP ---
[facility] Gloria Bolanos MD Admission Diagnosis [facility] Diagnoses: Travel History International Travel<30 Days: No Contact w/Intl Traveler <30 Da: No Traveled to Known Affected Are: No History of Present Illness had dinner at work around 8:45p.m. 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 ambulance and sent her to hospital denies driving herself to the hospital confirmed by both patient and family that this happened at work, and she did not drive similar episode happened in March and April this year MRI / MRA/ carotid artery in march no acute issues Stress test in April - wnl reports of episodes of memory impairment , staring into space while someone is talking , right hand twisting at times never had eeg prior 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 Cysts Spinal Stenosis Past Surgical History Cholecystectomy Appy Tubal Ligation Hysterectomy: complete Allergies: Coded Allergies: codeine (Unverified Adverse Reaction, Severe, Nausea/Vomiting, 08/15/17) Family History mom- dm/ htn/. cabg dad- dm Social History no smoking hx, but exposed to second hand smoke no drugs/ no etoh no longer driving lives with Physical Exam Vital Signs Vital Signs Date Time Temp Pulse Resp B/P (MAP) Pulse Ox O2 Delivery O2 Flow Rate FiO2 08/16/17 04:26 71 16 171/87 (115) 97 Room Air 08/16/17 00:47 86 20 184/86 (118) 99 Room Air 08/15/17 22:50 97 Room Air 08/15/17 21:32 98.3 120 22 179/97 (124) 99 Physical Exam GENERAL: This is a well-nourished, well-developed patient, in no apparent distress. SKIN: No rashes, ecchymoses or lesions. Cool and dry. HEAD: Atraumatic. Normocephalic. No temporal or scalp tenderness. EYES: . No scleral icterus. No injection or drainage. ENT: Nose without bleeding, purulent drainage or septal hematoma. Airway patent. NECK: Trachea midline. No JVD Supple, nontender, no meningeal signs. CARDIOVASCULAR: Regular rate and rhythm without murmurs, gallops, or rubs. RESPIRATORY: Clear to auscultation. Breath sounds equal bilaterally. No wheezes , rales, or rhonchi. GASTROINTESTINAL: Abdomen soft, non-tender, nondistended. o guarding. MUSCULOSKELETAL: Extremities without clubbing, cyanosis, or edema. . LEFT LE in ankle brace NEUROLOGICAL: Awake and alert. Motor and sensory grossly within normal limits. Normal speech. Laboratory Laboratory Tests Test 08/15/17 22:30 08/16/17 00:45 08/16/17 04:23 White Blood Count 3.5 Red Blood Count 4.54 Hemoglobin 12.9 Hematocrit 37.6 Mean Corpuscular Volume 82.8 Mean Corpuscular Hemoglobin 28.4 Mean Corpuscular Hemoglobin Concent 34.3 Red Cell Distribution Width 14.2 Platelet Count 136 Mean Platelet Volume 8.6 Neutrophils (%) (Auto) 55.2 Lymphocytes (%) (Auto) 33.5 Monocytes (%) (Auto) 7.7 Eosinophils (%) (Auto) 2.6 Basophils (%) (Auto) 1.0 Neutrophils # (Auto) 1.9 Lymphocytes # (Auto) 1.2 Monocytes # (Auto) 0.3 Eosinophils # (Auto) 0.1 Basophils # (Auto) 0.0 CBC Comment AUTO DIFF Differential Comment AUTO DIFF CONFIRMED Platelet Estimate LOW Platelet Morphology Comment NORMAL Prothrombin Time 10.7 Prothromb Time International Ratio 1.0 Activated Partial Thromboplast Time 22.9 Blood Urea Nitrogen 11 Creatinine 0.67 Random Glucose 384 Total Protein 7.4 Albumin 4.0 Calcium Level 8.8 Magnesium Level 1.5 Alkaline Phosphatase 141 Aspartate Amino Transf (AST/SGOT) 17 Alanine Aminotransferase (ALT/SGPT) 30 Total Bilirubin 0.5 Sodium Level 138 Potassium Level 3.4 Chloride Level 101 Carbon Dioxide Level 26.3 Anion Gap 11 Estimat Glomerular Filtration Rate 89 Total Creatine Kinase 86 Troponin I LESS THAN 0.02 Lipase 97 Thyroid Stimulating Hormone 3rd Gen 0.987 Urine Color LIGHT-YELLOW Urine Turbidity CLEAR Urine pH 6.0 Urine Specific [place] 1.042 Urine Protein 30 Urine Glucose (UA) 1000 Urine Ketones 40 Urine Occult Blood NEG Urine Nitrite NEG Urine Bilirubin NEG Urine Urobilinogen LESS THAN 2.0 Urine Leukocyte Esterase NEG Urine RBC 3 Urine WBC 3 Urine Squamous Epithelial Cells 2 Urine Mucus FEW Microscopic Urinalysis Comment CULT NOT INDICATED Result Diagram: 08/15/17222908/15/172229 Imaging Last [address] 08/15/172202 Signed Impressions: Service Date/Time: Tuesday, August 15, 2017 22:11 - CONCLUSION: No acute disease. Praksah Jiménez Jr., MD Chest X-Ray 08/15/172202 Signed Impressions: Service Date/Time: Tuesday, August 15, 2017 22:25 - CONCLUSION: No acute disease. Prakash Jiménez Jr., MD Caprini VTE Risk Assessment Caprini VTE Risk Assessment: Mod/High Risk (score >= 2) Caprini Risk Assessment Model Point Value = 1 Point Value = 2 Point Value = 3 Point Value = 5 Age 41-60 Minor surgery BMI > 25 kg/m2 Swollen legs Varicose veins or History of unexplained or recurrent spontaneous Oral contraceptives or hormone replacement Sepsis (< 1 month) Serious lung disease, including pneumonia (< 1 month) Abnormal pulmonary function Acute myocardial infarction Congestive heart failure (< 1 month) History of inflammatory bowel disease Medical patient at bed rest Age 61-74 Arthroscopic surgery Major open surgery (> 45 min) Laparoscopic surgery (> 45 min) Malignancy Confined to bed (> 72 hours) Immobilizing plaster cast Central venous access Age >= 75 History of VTE Family history of VTE Factor V Leiden Prothrombin [id number] Lupus anticoagulant Anticardiolipin antibodies Elevated serum homocysteine Heparin-induced thrombocytopenia Other congenital or acquired thrombophilia Stroke (< 1 month) Elective arthroplasty Hip, pelvis, or leg fracture Acute spinal cord injury (< 1 month) Prophylaxis Regimen Total Risk Factor Score Risk Level Prophylaxis Regimen 0-1 Low Early ambulation 2 Moderate Order ONE of the following: *Sequential Compression Device (SCD) *Heparin 5000 units SQ BID 3-4 Higher Order ONE of the following medications: *Heparin 5000 units SQ TID *Enoxaparin/Lovenox 40 mg SQ daily (WT < 150 kg, CrCl > 30 mL/min) *Enoxaparin/Lovenox 30 mg SQ daily (WT < 150 kg, CrCl > 10-29 mL/min) *Enoxaparin/Lovenox 30 mg SQ BID (WT < 150 kg, CrCl > 30 mL/min) AND/OR *Sequential Compression Device (SCD) 5 or more Highest Order ONE of the following medications: *Heparin 5000 units SQ TID (Preferred with Epidurals) *Enoxaparin/Lovenox 40 mg SQ daily (WT < 150 kg, CrCl > 30 mL/min) *Enoxaparin/Lovenox 30 mg SQ daily (WT < 150 kg, CrCl > 10-29 mL/min) *Enoxaparin/Lovenox 30 mg SQ BID (WT < 150 kg, CrCl > 30 mL/min) AND *Sequential Compression Device (SCD) Assessment and Plan Assessment and Plan Impression: Near Syncopal episodes- recurrent possible seizures- per description from patient and family hyperglycemia- due to missing meds while in ER Plan: MRI / MRA results from march reviewed carotid sono, echo- reviewed eeg neuro consult suspects this patient may be having partial seizures monitor fingersticks and cover with sliding scale resume home meds Apolinar Watson MD Aug 16, 2017 04:56
[2017-08-16] MEDS ORDERED: POTASSIUM CHLORIDE 20 MEQ CONTROLLED RELEASE TAB PO ONE (05:00)
[2017-08-16] MEDS ORDERED: ACETAMINOPHEN 325 MG TAB PO PRN (05:00)
[2017-08-16] MEDS ORDERED: MECLIZINE HCL 25 MG TAB PO PRN (05:00)
[2017-08-16 05:11] LABS: CREATINE KINASE 69 U/L (26-192)
[2017-08-16] MEDS ORDERED: GLUCAGON 1 MG/ML VIAL OTHER PRN (05:15)
[2017-08-16] MEDS ORDERED: DEXTROSE 50% IN WATER 50 ML VIAL(D50) IV PUSH PRN (05:15)
[2017-08-16] MEDS ORDERED: cloNIDine HCL 0.1 MG TAB PO PRN (05:15)
--- NOTE | 2017-08-16 07:32 | EKG ---
Date Performed: 08/16/2017 Time Performed: 04:18:35 PTAGE: 61 years EKG: Sinus rhythm WITH SINUS ARRHYTHMIA ANTEROSEPTAL MYOCARDIAL INFARCTION ABNORMAL ECG No significant change from beryl or electrocardiogram. PREVIOUS TRACING : 08/15/2017 22.52 DOCTOR: Ben Markham Interpretating Date/Time 08/16/2017 07:31:19
--- NOTE | 2017-08-16 07:36 | EKG ---
Date Performed: 08/15/2017 Time Performed: 22:52:58 PTAGE: 61 years EKG: Sinus rhythm ANTEROSEPTAL MYOCARDIAL INFARCTION possible Inferior myocardial infarction ABNORMAL ECG Compared to prior electrocardiogram, rate has increased PREVIOUS TRACING : 04/14/2017 00.48 DOCTOR: Ben Markham Interpretating Date/Time 08/16/2017 07:36:38
[2017-08-16] MEDS: ASPIRIN EC 81 MG TABEC PO SCH (08:22)
[2017-08-16] MEDS: PANTOPRAZOLE SOD 40 MG DELAYED RELEASE TAB PO SCH ×2 (08:22→21:25)
[2017-08-16] MEDS: ATORVASTATIN 40 MG TAB PO SCH (08:22)
[2017-08-16] MEDS: APIXABAN 5 MG TABLET PO SCH ×2 (08:22→21:25)
[2017-08-16] MEDS: INSULIN ASPART SUPPLEMENTAL SCALE SQ SCH ×4 (08:23→21:00)
[2017-08-16] MEDS ORDERED: DOCUSATE SODIUM 50 MG/SENNA 8.6 MG TAB PO SCH (09:00)
[2017-08-16] MEDS: SODIUM CHLORIDE 0.9% FLUSH 10 ML FLUSH IV FLUSH SCH ×2 (09:56→22:06)
--- NOTE | 2017-08-16 10:02 | MB ---
cc: HASMUKH DE LEON DATE OF CONSULTATION 08/16/2017 REASON FOR CONSULTATION This is a 61-year-old left-handed woman with a history of hypertension, insulin dependent diabetes, hypercholesterolemia, A. fib. She tells me she has had seizures since she was young, although not on medications where she would stare off and she is not sure if she has had any episodes recently. She says she cannot tell when they occur. I am asked to see her for possible complex partial seizures. She was in here with a headache and rapid new onset A. fib seen by Dr. lCark several months ago. 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 Yesterday she was back at work, felt palpitations and lightheadedness like she might pass out. No other odd sensations seen. Per the ED, she was driving, started feeling numbness and a burning sensation in her left face, arm and leg and almost passed out. She did not give this history to me. I asked the patient directly about this episode of left face burning and tingling while she was driving. She says that was not true, I am not sure how that got on the chart. What she does tell me is that she just felt hot all over, palpitations, lightheaded like she might pass out but did not. Evidently an ambulance was called from work. A similar episode in March and April of this year. ALLERGIES SHE IS ALLERGIC TO CODEINE. MEDICATIONS She is on: 1. Lortab 2. Atorvastatin 3. Lisinopril 4. Gabapentin 400 twice a day 5. Citalopram 20 a day 6. Meclizine 7. Spirolactone 8. Eliquis 5 b.i.d. 9. Insulin 10. Cardizem 11. Metformin 12. Glipizide 13. Omeprazole 14. Baby aspirin REVIEW OF SYSTEMS She denies any renal, hepatic or pulmonary disease, CABG, stent, thyroid, lupus, ulcer cancer, or stroke. SOCIAL HISTORY Nonsmoker or drinker. No drugs. Lives with her and extended family. FAMILY HISTORY Negative cancer, positive for seizures in a grandmother and granddaughter, negative for stroke. IMAGING MRI of the brain, MRA [place] and carotid ultrasound negative except for some disease in the GEAR ROOM KEEPER's bilaterally in the MRA [place] by report. Stress test in April was normal. 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 3. Spinal stenosis 4. Occasional headaches not daily she tells me. PHYSICAL EXAM On exam afebrile, 70, 18, 187/83, highest blood pressure 208/85 when she came in, pulse of 120 when she came in. NECK: There are no carotid bruits. HEART: Regular rhythm. I did not detect a murmur. NEUROLOGIC: The left pupil was 3-1/2 mm, the right is 3 mm. Visual [place] are full. Extraocular movements intact without nystagmus. Face symmetric with normal station. Tongue was midline. There is no drift. She had normal strength in the upper and lower extremities bilaterally. DTRs are trace throughout. Toes were downgoing on the right, on the left she has the boot on. Pinprick is intact throughout. She is not ataxic on [id number]. Speech is fluent. She is not aphasic. LABORATORY DATA CBC is normal except for a white count of 3.5. Sed rate was normal in March. UA glucose was 1000. Coags normal. BMP normal, glucose 384, hemoglobin A1c 10.5. LFTs essentially unremarkable. CPK, troponin, CRP, total protein normal. LDL cholesterol was normal in June of this year. TSH normal, B12 normal in March of this year. She had a chest x-ray here with no acute disease. CT scan of the brain was read as negative. MRI of the brain no acute disease in March and the MRA [place] showed some narrowing in the arteries on the right. Two areas of mild to moderate narrowing of the right proximal posterior cerebral artery. Distal flow otherwise normal. Neck CTA was performed that was read as normal. Head CTA mild left and moderate right GEAR ROOM KEEPER stenosis, otherwise negative at that time. Review of her MRI of the brain from March did not show any old infarcts. Diffusion image was negative for any acute infarct. I did not note any significantly enlarged pineal cyst. No hemorrhage was noted. Head CTA has some mild disease on the right, minimal on the left posterior cerebral artery. Arterial tree in the neck looked fine. An echocardiogram done in March showed a normal ejection fraction, some LVH, normal left atrial size, normal valve. IMPRESSION Sounds like a presyncopal episode with a tachycardia and a heart rate to 120. I would recommend having cardiology see her for that as she has known rapid A. fib in the past. In addition, I think a seizure here is unlikely from last evening. EEG is being performed. She does not drive and at this point, I would not recommend putting her on any seizure meds. We will review the EEG results and we can check an MRA just to make sure there is no acute stroke from A. fib, but sounds primarily non-neurological for this episode. She needs to get her sugar under control, take better care of herself medically. I would not add an aspirin onto her Eliquis from a neurological point of view. We will just leave her on the Eliquis 5 b.i.d. The main concern I see here is that her blood pressure was so high when she came in and her heart rate was so high and her sugar was so high. If the MRI is performed and is negative, she could be discharged neuro [place]. I will defer to the med team if I think we need to get cardiology to see her. MD REE Cannon/JORDAN /9:19 AM /9:38 AM
[2017-08-16] MEDS ORDERED: hydrALAZINE HCL 50 MG TAB PO ONE (13:30)
--- NOTE | 2017-08-16 13:31 | HHI.PR ---
Subjective Remarks Follow-up near-syncope/A. fib with RVR 08/16/17-patient seen and examined, reports improvement of symptoms his admission. BP still elevated and heart rate currently controlled. Objective Vitals Vital Signs Date Time Temp Pulse Resp B/P (MAP) Pulse Ox O2 Delivery O2 Flow Rate FiO2 08/16/17 08:30 162/94 (116) 174/101 (125) 167/97 (120) 175/92 (119) 08/16/17 07:00 65 08/16/17 07:00 98.2 79 18 162/94 (116) 95 08/16/17 06:15 96.8 70 18 187/83 (117) 97 08/16/17 05:23 08/16/17 04:26 71 16 171/87 (115) 97 Room Air 08/16/17 00:47 86 20 184/86 (118) 99 Room Air 08/15/17 22:50 97 Room Air 08/15/17 21:32 98.3 120 22 179/97 (124) 99 Result Diagram: 08/15/17222908/15/172229 Imaging Last Impressions Head CT 08/15/172202 Signed Impressions: Service Date/Time: Tuesday, August 15, 2017 22:11 - CONCLUSION: No acute disease. Prakash Jiménez Jr., MD Chest X-Ray 08/15/172202 Signed Impressions: Service Date/Time: Tuesday, August 15, 2017 22:25 - CONCLUSION: No acute disease. Prakash Jiménez Jr., MD Objective Remarks GENERAL: NAD SKIN: Warm and dry. HEAD: Normocephalic. EYES: No scleral icterus. No injection or drainage. NECK: Supple, trachea midline. No JVD or lymphadenopathy. CARDIOVASCULAR: Irregular Regular rate and rhythm without murmurs, gallops, or rubs. RESPIRATORY: Breath sounds equal bilaterally. No accessory muscle use. GASTROINTESTINAL: Abdomen soft, non-tender, nondistended. MUSCULOSKELETAL: No cyanosis, or edema. BACK: Nontender without obvious deformity. No CVA tenderness. A/P Problem List: (1) Near syncope ICD Code: R55 - Syncope and collapse (2) Atrial fibrillation ICD Code: I48.91 - Unspecified atrial fibrillation (3) Benign labile hypertension ICD Code: I10 - Essential (primary) hypertension (4) Type II diabetes mellitus ICD Code: E11.9 - Type 2 diabetes mellitus without complications Status: Acute Assessment and Plan 61-year-old female with Near Syncopal episodes- recurrent Likely vasovagal Brain MRI/MRA pending Questionable seizure? Appreciate input from neurology, however thinks is less likely therefore patient will not be started on antiepileptic drugs EEG pending Diabetes type 2, uncontrolled blood glucose Currently on insulin sliding scale, will give Levemir 25 units at bedtime. Likely resume patient home medication in a.m. Check hemoglobin A1c Benign labile hypertension Start Coreg 25 mg twice a day Give hydralazine 50 mg by mouth 1 now Atrial fibrillation Continue Eliquis Resume beta tracy Discharge Planning Likely discharge in a.m. if EEG negative Logan Alvarez MD Aug 16, 2017 13:31
[2017-08-16 13:51] LABS: CREATINE KINASE 66 U/L (26-192)
--- NOTE | 2017-08-16 16:53 | MG ---
cc: MALOU DANIEL Lab No: [id number] Date: 08/16/17 Age: 61 Sex: F Race: TECHNIQUE 17 channel EEG. DESCRIPTION The background rhythm reveals a symmetrical alpha rhythm. Frequency is on the order of 20-30 microvolts. There are no lateralizing features identified and no epileptiform features are seen. At times there is mild slowing in the theta range related to drowsiness. Photic stimulation results in a normal driving response. Hyperventilation was done with good effort with no change in background rhythm. INTERPRETATION This is a normal EEG. MD CORINNE Escudero/RENEA /3:08 PM /4:54 PM
[2017-08-16] MEDS ORDERED: INSULIN DETEMIR 100 UNITS/ML VIAL SQ SCH (21:00)
[2017-08-16] MEDS: CARVEDILOL 12.5 MG TAB PO SCH (21:25)
[2017-08-17] VITALS: BP 144/74; PULSE 76; RESP 18; TEMP 98.3; O2SAT 95
[2017-08-17 04:00] VITALS: BP 141/83; PULSE 71; RESP 18; TEMP 98.3; O2SAT 94
[2017-08-17 05:37] LABS: AUTOMATED NEUTROPHIL # 1.6 TH/MM3 (1.8-7.7); BASOPHIL % 0.8 % (0.0-2.0); EOSINOPHIL # 0.1 TH/MM3 (0-0.4); EOSINOPHIL % 3.8 % (0.0-4.0); HEMATOCRIT 37.7 % (35.0-46.0); HEMO FLAGS DIFF FINAL; LYMPHOCYTE # 1.8 TH/MM3 (1.0-4.8); MEAN CELL VOLUME 82.2 FL (80.0-100.0); MEAN CORPUSCULAR HEMOGLOBIN 27.9 PG (27.0-34.0); MONO % 8.9 % (0.0-8.0); NEUT % 40.5 % (16.0-70.0); PLATELET COUNT 137 TH/MM3 (150-450); RED BLOOD COUNT 4.59 MIL/MM3 (4.00-5.30); RED CELL DISTRIBUTION WIDTH 13.5 % (11.6-17.2); WHITE BLOOD COUNT 3.9 TH/MM3 (4.0-11.0)
[2017-08-17 06:00] VITALS: PULSE 71
[2017-08-17 07:05] VITALS: BP 125/78; PULSE 71; RESP 18; TEMP 95.8; O2SAT 97
[2017-08-17 07:08] LABS: ANION GAP 6 MEQ/L (5-15); BICARBONATE 28.9 MEQ/L (21.0-32.0); BLOOD UREA NITROGEN 15 MG/DL (7-18); CHLORIDE 104 MEQ/L (98-107); GLOMERULAR FILTRATION RATE 112 ML/MIN (>89); HDL CHOLESTEROL 36.7 MG/DL (40.0-60.0); LDL CHOLESTEROL 91 MG/DL (0-99); POTASSIUM 3.4 MEQ/L (3.5-5.1); SODIUM (NA) 139 MEQ/L (136-145)
[2017-08-17] MEDS: ATORVASTATIN 40 MG TAB PO SCH (09:21)
[2017-08-17] MEDS: CARVEDILOL 12.5 MG TAB PO SCH (09:22)
[2017-08-17] MEDS: PANTOPRAZOLE SOD 40 MG DELAYED RELEASE TAB PO SCH (09:22)
[2017-08-17] MEDS: ASPIRIN EC 81 MG TABEC PO SCH (09:22)
[2017-08-17] MEDS: APIXABAN 5 MG TABLET PO SCH (09:22)
[2017-08-17] MEDS: SODIUM CHLORIDE 0.9% FLUSH 10 ML FLUSH IV FLUSH SCH (09:23)
[2017-08-17] MEDS: INSULIN ASPART SUPPLEMENTAL SCALE SQ SCH (09:23)
--- NOTE | 2017-08-17 11:12 | HHI.PR ---
Subjective Remarks Follow-up near-syncope/A. fib with RVR 08/16/17-patient seen and examined, reports improvement of symptoms his admission. BP still elevated and heart rate currently controlled. 08/17/17-patient seen and examined, stable and no complaint. No further episode of syncope or dizziness. Patient is quite stressed about her new job Objective Vitals Vital Signs Date Time Temp Pulse Resp B/P (MAP) Pulse Ox O2 Delivery O2 Flow Rate FiO2 08/17/17 07:05 95.8 71 18 125/78 (94) 97 08/17/17 06:00 71 08/17/17 04:00 98.3 71 18 141/83 (102) 94 08/17/17 04:00 71 08/17/17 00:00 76 08/17/17 00:00 98.3 76 18 144/74 (97) 95 08/16/17 23:00 74 08/16/17 20:00 77 08/16/17 19:00 89 08/16/17 19:00 98.3 89 18 160/88 (112) 95 08/16/17 18:00 58 08/16/17 17:00 76 08/16/17 16:00 80 08/16/17 15:00 98.2 82 18 141/86 (104) 96 08/16/17 15:00 79 08/16/17 14:00 74 08/16/17 13:00 80 08/16/17 12:00 72 I/O 08/16/17 08/16/17 08/16/17 08/17/17 08/17/17 08/17/17 07:00 15:00 23:00 07:00 15:00 23:00 Intake Total 720 ml 300 ml Balance 720 ml 300 ml Intake Oral 720 ml 300 ml # Voids 3 3 # Bowel Movements 0 Result Diagram: 08/17/176 08/17/17455 Imaging Last Impressions Head CT 08/15/172202 Signed Impressions: Service Date/Time: Tuesday, August 15, 2017 22:11 - CONCLUSION: No acute disease. Prakash Jiménez Jr., MD Chest X-Ray 08/15/172202 Signed Impressions: Service Date/Time: Tuesday, August 15, 2017 22:25 - CONCLUSION: No acute disease. Prakash Jiménez Jr., MD Objective Remarks GENERAL: NAD SKIN: Warm and dry. HEAD: Normocephalic. EYES: No scleral icterus. No injection or drainage. NECK: Supple, trachea midline. No JVD or lymphadenopathy. CARDIOVASCULAR: Irregular Regular rate and rhythm without murmurs, gallops, or rubs. RESPIRATORY: Breath sounds equal bilaterally. No accessory muscle use. GASTROINTESTINAL: Abdomen soft, non-tender, nondistended. MUSCULOSKELETAL: No cyanosis, or edema. BACK: Nontender without obvious deformity. No CVA tenderness. Procedures None A/P Problem List: (1) Near syncope ICD Code: R55 - Syncope and collapse (2) Atrial fibrillation ICD Code: I48.91 - Unspecified atrial fibrillation (3) Benign labile hypertension ICD Code: I10 - Essential (primary) hypertension (4) Type II diabetes mellitus ICD Code: E11.9 - Type 2 diabetes mellitus without complications Status: Acute Assessment and Plan 61-year-old female with Near Syncopal episodes- recurrent Likely vasovagal Head CT negative Questionable seizure? Appreciate input from neurology, however thinks is less likely therefore patient will not be started on antiepileptic drugs EEG negative Diabetes type 2, uncontrolled blood glucose Currently on insulin sliding scale, will give Levemir 25 units at bedtime. Resume home medications on discharge hemoglobin A1c pending Benign labile hypertension-resolved Continue Coreg 25 mg twice a day Atrial fibrillation Continue Eliquis, beta tracy DVT prophylaxis: Eliquis Discharge Planning Likely discharge in a.m. if EEG negative Logan Alvarez MD Aug 17, 2017 11:12
[2017-08-17] MEDS ORDERED: CARV12.5 PO (11:17)
--- NOTE | 2017-08-17 11:20 | HHI.DS ---
Discharge Summary Admission Date Aug 16, 2017 at 01:04 Discharge Date: Aug 17, 2017 Admitting Diagnosis NEARSYNCOPE (1) Near syncope ICD Code: R55 - Syncope and collapse (2) Atrial fibrillation ICD Code: I48.91 - Unspecified atrial fibrillation (3) Benign labile hypertension ICD Code: I10 - Essential (primary) hypertension (4) Type II diabetes mellitus ICD Code: E11.9 - Type 2 diabetes mellitus without complications Status: Acute Procedures None Brief History - From Admission had dinner at work around 8:45p.m. 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 go hospital and they called ambulance and sent her to hospital denies driving herself to the hospital confirmed by both patient and family that this happened at work, and she did not drive similar episode happened in March and April this year MRI / MRA/ carotid artery in march no acute issues Stress test in April - wnl reports of episodes of memory impairment , staring into space while someone is talking , right hand twisting at times never had eeg prior 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 daughter has pineal gland cyst with hx of catatonic states reports of balance issues, left foot brace due to fx around 07/31 from a fall no other issues CBC/BMP: 08/17/17 0456 08/17/17 0456 Significant Findings Laboratory Tests Test 08/15/17 22:30 08/16/17 00:45 08/16/17 04:23 08/16/17 12:50 White Blood Count 3.5 TH/MM3 (4.0-11.0) Platelet Count 136 TH/MM3 (150-450) Platelet Estimate LOW (NORMAL) Activated Partial Thromboplast Time 22.9 SEC (24.3-30.1) Random Glucose 384 MG/DL (74-106) Alkaline Phosphatase 141 U/L (45-117) Potassium Level 3.4 MEQ/L (3.5-5.1) Troponin I LESS THAN 0.02 NG/ML LESS THAN 0.02 NG/ML LESS THAN 0.02 NG/ML Urine Specific [place] 1.042 (1.002-1.035) Urine Protein 30 mg/dL (NEG-TRACE) Urine Glucose (UA) 1000 mg/dL (NEG) Urine Ketones 40 mg/dL (NEG) Urine Mucus FEW /lpf (OCC) Test 08/17/17 04:56 White Blood Count 3.9 TH/MM3 (4.0-11.0) Platelet Count 137 TH/MM3 (150-450) Lymphocytes (%) (Auto) 46.0 % (9.0-44.0) Monocytes (%) (Auto) 8.9 % (0.0-8.0) Neutrophils # (Auto) 1.6 TH/MM3 (1.8-7.7) Random Glucose 181 MG/DL (74-106) Calcium Level 8.3 MG/DL (8.5-10.1) Potassium Level 3.4 MEQ/L (3.5-5.1) Triglycerides Level 185 MG/DL (42-150) HDL Cholesterol 36.7 MG/DL (40.0-60.0) Imaging Last Impressions Head CT 08/15/172202 Signed Impressions: Service Date/Time: Tuesday, August 15, 2017 22:11 - CONCLUSION: No acute disease. Prakash Jiménez Jr., MD Chest X-Ray 08/15/172202 Signed Impressions: Service Date/Time: Tuesday, August 15, 2017 22:25 - CONCLUSION: No acute disease. Prakash Jiménez Jr., MD PE at Discharge GENERAL: NAD SKIN: Warm and dry. HEAD: Normocephalic. EYES: No scleral icterus. No injection or drainage. NECK: Supple, trachea midline. No JVD or lymphadenopathy. CARDIOVASCULAR: Irregular Regular rate and rhythm without murmurs, gallops, or rubs. RESPIRATORY: Breath sounds equal bilaterally. No accessory muscle use. GASTROINTESTINAL: Abdomen soft, non-tender, nondistended. MUSCULOSKELETAL: No cyanosis, or edema. BACK: Nontender without obvious deformity. No CVA tenderness. Hospital Course Patient was admitted secondary to near syncopal episode for which head CAT scans were unremarkable. For presumed and questionable seizure activity, neurology was consulted and EEG was performed which was negative. Patient was not started on any antiepileptic drug. She was continued on oral anticoagulation and started on Coreg twice a day secondary to labile blood pressure which significantly improved. Prior to discharge, patient conditions improved. Pt Condition on Discharge: Stable Discharge Disposition: Discharge Home Discharge Time: <= 30 minutes Discharge Instructions DIET: Follow Instructions for: Heart Healthy Diet Activities you can perform: Regular-No Restrictions Follow up Referrals: PCP Follow-up - 1 Week New Medications: Carvedilol (Coreg) 12.5 Mg Tab 12.5 MG PO Q12HR for Blood Pressure Management, #60 TAB 3 Refills Continued Medications: Apixaban (Eliquis) 5 Mg Tab 5 MG PO BID for Blood Clot Prevention, #60 TAB [address] (Aspir-81) 81 Mg Tabdr 81 MG PO DAILY Atorvastatin (Atorvastatin) 40 Mg Tab 40 MG PO DAILY for Cholesterol Management, #30 TAB 3 Refills Citalopram (Citalopram) 20 Mg Tab 20 MG PO DAILY for Control Depression, #30 TAB 3 Refills Gabapentin (Gabapentin) 400 Mg Cap 400 CAP PO BID, #60 CAP 3 Refills Glipizide (Glipizide) 10 Mg Tab 10 MG PO BIDAC for Blood Sugar Management, #60 TAB 3 Refills Take 30 minutes before a meal Insulin Aspart Inj (Novolog Inj) 100 Unit/Ml Inj 1 INJECTION SQ ACHS SLIDING SCALE for Blood Sugar Management for 30 Days, #10 ML 3 Refills Insulin Detemir Inj (Levemir Inj) 1,000 unit/ 10 ML Vial 55 UNITS SQ BID for Diabetes for 30 Days, #10 ML 3 Refills Patient will take 60 units in the AM 55 units in the PM Lisinopril (Lisinopril) 30 Mg Tab 30 MG PO DAILY for Blood Pressure Management, #30 TAB 3 Refills Metformin (Metformin) 500 Mg Tab 1000 MG PO BIDPC for Blood Sugar Management, #120 TAB 3 Refills With meals Omeprazole (Omeprazole) 20 Mg Tab 40 MG PO BID, #30 TAB 3 Refills Sennosides-Docusate Sodium (Ginny-Colace) 8.6-50 Mg Tab 1 TAB PO DAILY for Constipation, #60 TAB 0 Refills Spironolactone (Spironolactone) 25 Mg Tab 25 MG PO DAILY, #30 TAB 3 Refills Discontinued Medications: Diltiazem CD 24 HR (Cardizem CD 24 HR) 240 Mg Caper 240 MG PO DAILY for heart, #30 CAP 3 Refills Hydrocodone-Acetaminophen (Lortab) 5-325 Mg Tab 1 TAB PO Q6H PRN for PAIN, #20 TAB 0 Refills Meclizine (Meclizine) 25 Mg Tab 25 MG PO DIRECTED PRN for VERTIGO, #60 TAB 3 Refills Logan Alvarez MD Aug 17, 2017 11:20
[2017-08-17 13:24] LABS: HEMOGLOBIN A1a 1.3 %; HEMOGLOBIN A1b 0.9 %; HEMOGLOBIN Ao 77.4 %; HEMOGLOBIN F 2.3 %; HEMOGLOBIN LA1C 2.4 %; HEMOGLOBIN P3 4.5 %
--- NOTE | 2017-08-17 18:27 | EKG ---
Date Performed: 08/16/2017 Time Performed: 11:04:28 PTAGE: 61 years EKG: Sinus rhythm . Inferior infarct - age undetermined Anteroseptal infarct - age undetermined Abnormal ECG PREVIOUS TRACING : 08/16/2017 04.18 DOCTOR: Mauro Garza Interpretating Date/Time 08/17/2017 18:18:47
== END 2017-08-17 12:59 | disposition home or self-care (01) ==
LOC: NEPE 21:26 → NEDA 08-16 01:04 → HCIS 08-16 05:35
PROVIDERS: ADMIT Hospitalist; ATTEND Hospitalist
DX: R55 Syncope and collapse (principal); R42 Dizziness and giddiness; R06.02 Shortness of breath; R20.0 Anesthesia of skin; R51 Headache; R94.31 Abnormal electrocardiogram [ECG] [EKG]; I49.8 Other specified cardiac arrhythmias; I10 Essential (primary) hypertension; E78.00 Pure hypercholesterolemia, unspecified; I48.91 Unspecified atrial fibrillation; E11.65 Type 2 diabetes mellitus with hyperglycemia; M48.00 Spinal stenosis, site unspecified; F41.9 Anxiety disorder, unspecified; F32.9 Major depressive disorder, single episode, unspecified; M19.90 Unspecified osteoarthritis, unspecified site; Z79.899 Other long term (current) drug therapy; Z79.82 Long term (current) use of aspirin; Z79.84 Long term (current) use of oral hypoglycemic drugs; Z79.01 Long term (current) use of anticoagulants; Z79.4 Long term (current) use of insulin; Z77.22 Contact with and (suspected) exposure to environmental tobacco smoke (acute) (chronic)
CPT/HCPCS: 70450; 71010; 80048; 80053; 80061; 81001; 82550; 82948; 83036; 83690; 83735; 84443; 84484; 85025; 85610; 85730; 93005; 95819; 96372; 97162; 99285; G0378; G8987; G8988; J1815

== ENCOUNTER 2018-03-03 00:34 | Emergency (ER) | payer OTHER ==
[~2018-03-03] VITALS: Ht 160 cm; Wt 65.0 kg
[~2018-03-03 00:34] MED LIST changes: -CARD240C6 PO; +CARV12.5 PO; -HYDR-3533 PO; -MECL-62 PO
[2018-03-03 00:36] VITALS: BP 219/134; PULSE 107; RESP 18; TEMP 97.8; O2SAT 98
--- NOTE | 2018-03-03 01:53 | PD ---
HPI Chief Complaint: Complaint Time Seen by Provider: 00:48 Travel History International Travel<30 days: No Contact w/Intl Traveler<30days: No Traveled to known affect area: No History of Present Illness HPI Ms. Mazariegos is a 62-year-old female who has no primary care doctor. Comes in complaining of frequency, urgency, and when she gets the urge to go URINATE SHE DOESN'T GET AN opportunity to get to the bathroom before she has an accident. The patient also is here complaining of a lump that she has noticed over the past 2 weeks on the back of her neck. Patient states is about the size of a half dollar, in diameter, it is tender to touch, but she denies having any fever , neck stiffness, headache, chest pain, back pain, flank pain, nausea vomiting or diarrhea. PFSH Past Medical History Atrial Fibrillation: Yes Anxiety: Yes Cardiovascular Problems: Yes (HTN, AFIB) High Cholesterol: Yes Diabetes: Yes Patient Takes Glucophage: Yes ("been a while I think I ran out of it or something") Diminished Hearing: No Hypertension: Yes Immunizations Current: Yes Tetanus Vaccination: Unknown Influenza Vaccination: No ?: Not Tubal Ligation: Yes Past Surgical History Appendectomy: Yes Cholecystectomy: Yes Gynecologic Surgery: Yes Hysterectomy: Yes Tonsillectomy: Yes Other Surgery: Yes Social History Alcohol Use: No Tobacco Use: No Substance Use: No Allergies-Medications (Allergen,Severity, Reaction): Coded Allergies: codeine (Unverified Adverse Reaction, Severe, Nausea/Vomiting, 03/03/18) Reported Meds & Prescriptions Reported Meds & Active Scripts Active Bactrim DS (Sulfamethoxazole-Trimethoprim) 800-160 Mg Tab 1 Tab PO BID Coreg (Carvedilol) 12.5 Mg Tab 12.5 Mg PO Q12HR Atorvastatin (Atorvastatin Calcium) 40 Mg Tab 40 Mg PO DAILY Lisinopril 30 Mg Tab 30 Mg PO DAILY Gabapentin 400 Mg Cap 400 Cap PO BID Citalopram (Citalopram Hydrobromide) 20 Mg Tab 20 Mg PO DAILY Spironolactone 25 Mg Tab 25 Mg PO DAILY Eliquis (Apixaban) 5 Mg Tab 5 Mg PO BID Novolog Inj (Insulin Aspart) 100 Unit/Ml Inj 1 Injection SQ ACHS SLIDING SCALE 30 Days Levemir Inj (Insulin Detemir) 1,000 unit/ 10 ML Vial 55 Units SQ BID 30 Days Patient will take 60 units in the AM 55 units in the PM Metformin (Metformin HCl) 500 Mg Tab 1,000 Mg PO BIDPC With meals Glipizide 10 Mg Tab 10 Mg PO BIDAC Take 30 minutes before a meal Omeprazole 20 Mg Tab 40 Mg PO BID Alcohol Prep Pads (Alcohol Swabs) 70 % Pad 1 Pad .ROUTE DIRECTED Reported Aspir-81 (Aspirin) 81 Mg Tabdr 81 Mg PO DAILY Ginny-Colace (Sennosides-Docusate Sodium) 8.6-50 Mg Tab 1 Tab PO DAILY Review of Systems General / Constitutional: No: Fever Eyes: No: Visual changes HENT: No: Headaches Cardiovascular: No: Chest Pain or Discomfort Respiratory: No: Shortness of Breath Gastrointestinal: No: Abdominal Pain Genitourinary: Positive: Urgency, Frequency Musculoskeletal: No: Pain Skin: No Rash Neurologic: No: Weakness Psychiatric: No: Depression Endocrine: No: Polydipsia Hematologic/Lymphatic: No: Easy Bruising Physical Exam Narrative GENERAL: SKIN: Warm and dry. HEAD: Atraumatic. Normocephalic. EYES: Pupils equal and round. No scleral icterus. No injection or drainage. ENT: No nasal bleeding or discharge. Mucous membranes pink and moist. NECK: Trachea midline. No JVD. Posterior cervical lymphadenopathy present, 5 cm diameter induration over the left trapezius is noted warm and erythematous but without fluctuance, no streaking CARDIOVASCULAR: Regular rate and rhythm. RESPIRATORY: No accessory muscle use. Clear to auscultation. Breath sounds equal bilaterally. GASTROINTESTINAL: Abdomen soft, non-tender, nondistended. Hepatic and splenic margins not palpable. MUSCULOSKELETAL: Extremities without clubbing, cyanosis, or edema. No obvious deformities. NEUROLOGICAL: Awake and alert. No obvious cranial nerve deficits. Motor grossly within normal limits. Five out of 5 muscle strength in the arms and legs. Normal speech. PSYCHIATRIC: Appropriate mood and affect; insight and judgment normal. Data Data Last Documented VS Orders Orders Ct Soft Tiss Neck W/O Iv Cont (03/03/18 ) Ed Discharge Order (03/03/18 03:19) MDM Medical Decision Making Medical Screen Exam Complete: Yes Emergency Medical Condition: Yes Medical Record Reviewed: Yes Differential Diagnosis UTI versus cellulitis versus abscess versus infected lymph node versus neck mass malignancy Narrative Course After review of the patient's chart, it is noted that the patient has had bladder prolapse as well as urinary incontinence for quite some time. So this is not a new finding Patient will be given antibiotics to address both the possibility of a UTI as well as left trapezius cellulitis. Diagnosis Primary Impression: Left trapezius cellulitis Additional Impression: Incontinence of urine in female Referrals: Manoj Almaraz MD For further evaluation of your bladder prolapse as well as urinary incontinence [facility] Patient Instructions: Cellulitis (ED), General Instructions Scripts Sulfamethoxazole-Trimethoprim (Bactrim DS) 800-160 Mg Tab 1 TAB PO BID for Infection, #20 TAB 0 Refills Prov: Juan J Lopez MD 03/03/18 Disposition: DISCHARGE HOME Condition: Stable Juan J Lopez MD March 03, 2018 01:53
--- NOTE | 2018-03-03 02:57 | RADRPT ---
EXAM DATE: 03/03/2018 2:47 AM EDT AGE/SEX: 62 years / Female INDICATIONS: Left posterior neck swelling X two weeks. CLINICAL DATA: This is the patient's initial encounter. Patient reports that signs and symptoms have been present for 2 weeks and indicates a pain score of 5/10. MEDICAL/SURGICAL HISTORY: Cardiovascular disease. Diabetes. Hypertension. Appendectomy. Hysterec luciano. Cholecystectomy. RADIATION DOSE: 16.48 CTDI (mGy) COMPARISON: No prior [facility] exams available for comparison. TECHNIQUE: Helical acquisition was performed using a multirow detector CT scanner without contrast. Using automated exposure control and adjustment of the mA and/or kV according to patient size, radiat ion dose was kept as low as reasonably achievable to obtain optimal diagnostic quality images. FINDINGS: Mildly nodular thickening and heterogeneity seen of left trapezius, especially near the level of C4. The surrounding subcutaneous fat is indurated. The trapezius nodularity measures approximately 1.3 x 2.0 cm in size. A small mass or minimally organized fluid collection would be in the differential. Nu merous subcentimeter cervical lymph nodes present, including left posterior cervical. No acute bony abnormality demonstrated. Also no acute abnormality seen of the visualized lung apices. CONCLUSION: 1. Nonspecific myositis with a possible small developing abscess involving the mid cervical portion of the left trapezius muscle. There is surrounding cellulitis. A small muscle mass would also be in t he differential and clinical follow up to resolution is recommended. 2. Shotty diffuse cervical adenopathy. Electronically signed by: Allen Aly MD 03/03/2018 2:56 AM EDT
[2018-03-03] MEDS ORDERED: BACT800T5 PO (03:18)
== END 2018-03-03 04:02 | disposition home or self-care (01) ==
LOC: NEPE 00:34
DX: L03.221 Cellulitis of neck (principal); N99.3 Prolapse of vaginal vault after hysterectomy
CPT/HCPCS: 70490